=== PATIENT | male | born 1960 | race Caucasian/White ===

== ENCOUNTER 2017-10-07 10:08 | Inpatient (IN) | payer BC, SELFPAY ==
[2017-10-07] VITALS (27 sets, daily range): BP systolic 77–137; BP diastolic 59–124; PULSE 69–149; RESP 13–23; TEMP 36.4–37.1; O2SAT 93–99; BMI 26.9; BMI 25.7; BMI 25.8
--- NOTE | 2017-10-07 10:17 | EKG12_ITS ---
Test Reason : REPEAT Blood Pressure : / mmHG Vent. Rate : 074 BPM Atrial Rate : 296 BPM P-R Int : 000 ms QRS Dur : 126 ms QT Int : 346 ms P-R-T Axes : 265 066 -76 degrees QTc Int : 384 ms Atrial flutter Indeterminate axis T wave abnormality, consider anterior ischemia Abnormal ECG Confirmed by AIMEE LOPEZ, VARGAS ([id number]), assistant film editor WALESKA ESPITIA ([id number]) on 10/09/2017 10:15:48 AM Referred By: ANTONY Confirmed By:VARGAS YU MD
--- NOTE | 2017-10-07 10:17 | RAD_ITS ---
STUDY: X-RAY CHEST REASON FOR EXAM: Male, 57 years old. Irregular heartbeat TECHNIQUE: Single AP portable view of the chest. COMPARISON: None. FINDINGS: There is hyperinflation of the lungs consistent with chronic obstructive lung disease (COPD). Lungs are clear. There is no demonstrated pleural abnormality. There is borderline cardiomegaly. Normal mediastinum and pedro. Normal visualized pulmonary arteries. Normal visualized aortic arch and descending thoracic aorta. Normal visualized thoracic spine. Normal visualized ribs, clavicles, and shoulders. There is no demonstrated abnormality of the visualized soft tissue structures of the upper abdomen. RAD/Chest 1 View (Portable) IMPRESSION: Normal x-ray examination of the chest. Electronically Signed: Osman Corado DO at 11:05 EST Tel , Service support ,
--- NOTE | 2017-10-07 10:20 | NURSING ---
NO OLD EKGS
--- NOTE | 2017-10-07 10:21 | ED.DCSUM_ITS ---
- ER Visit Summary Date of Service: 10/07/17 Chief Complaint: Tachycardia History of Present Illness: The patient is a 57 M who went to his PCP visit 2 days ago for routine checkup and blood pressure medication refill. Patient reports he had no complaints. He was told at that time that his heart rate was in the 140s and he should go to the ER. Patient presents today for this complaint. He denies chest pain, palpitations, shortness of breath, or change in activity tolerance. Patient states his last stress test was 2 years ago and normal. Physical Examination: Blood pressure is 114/83, temperature 98.5, heart rate 149 , respiratory rate 16, pulse ox 98% on room air. Patient sitting upright in bed no acute distress. Heart is tachycardic and regular. Lung sounds are clear. Abdomen is soft nontender. Test Results: EKG reveals atrial flutter with a rate of 148. Q waves noted in lead III. Portal chest x-ray is unremarkable. CBC reveals hemoglobin concentrated at 17.0. White count is 12.3. Chemistry studies reveal BUN 20 and creatinine 1.31. Troponin is less than 0.02. TSH is normal. Emergency Department Course and Treatment: Patient was initially given 10 mg of IV Cardizem. This did not alter his heart rate or blood pressure at all. 20 mg IV bolus of Cardizem was given. Heart rate improved into the 80s but maintained an underlying atrial flutter rhythm. Blood pressure is 104/71. I spoke with Dr. Saldaña as well as Dr. Scott. Patient will be given a dose of Lovenox. Treatment Plan: [] Disposition: Admit Impression: New onset atrial flutter This note was generated with [employer] dictation software. It may contain incorrect words, spelling, and punctuation that were not noted in review of the chart prior to signing ED Disposition - Plan for ED Patient: Chief Complaint: Chest Other
[2017-10-07] MEDS: 0.9% Normal Saline 1,000 ML 150 ML IV (10:33)
[2017-10-07 10:34] LABS: Absolute Lymphocyte Count 2.83 X10^3/ul (0.83-4.51); Basophil# 0.09 X10^3/uL; Basophil% 0.7 % (0-1); Eosinophil# 0.23 X10^3/uL; Eosinophils% 1.9 % (0-5); Hematocrit 48.9 % (40-54); Lymphocyte # 2.83 X10^3/ul (4.0); Lymphocyte % 23.1 % (19-41); Mean Corp Hgb Conc 34.8 g/gl (32-36); Mean Corpuscular Hgb 29.5 pg (27.0-32.0); Mean Corpuscular Volume 84.7 fL (80-94); Mean Platelet Vol. 10.9 fl (6.2-12.0); Monocyte# 1.11 X10^3/uL; Neutrophil # 7.98 X10^3/uL (2.7-7.7); Neutrophil % 65.1 % (47-70); Platelet Count 213 K/mm3 (150-450); RBC Distribution Width CV 13.8 % (11.6-14.6); RBC Distribution Width SD 42.3 fl (35.1-43.9); Red Blood Count 5.77 M/mm3 (4.6-6.2); White Blood Count 12.3 K/mm3 (4.4-11.0)
[2017-10-07] MEDS: dilTIAZem 25 MG/5 ML Vial 10 MG IV BOLUS (10:34)
[2017-10-07 10:35] LABS: POSITIVE COUNT NO; POSITIVE DIFFERENTIAL NO; POSITIVE MORPHOLOGY NO
[2017-10-07 10:55] LABS: Anion Gap 9 (5-15); BUN 20 mg/dL (7-18); BUN/Creat Ratio 15.3 RATIO (10-20); Calcium,Total 9.1 mg/dL (8.5-10.1); Chloride 102 mmol/L (98-107); Creatinine, Serum 1.31 mg/dL (0.70-1.30); EST Glomerular Filtration Rate 60 mL/min (>60); Est Glom Filt Rate - Afr Amer 72 mL/min (>60); Estimated Creatinine Clearance 69.46 ml/min; Glucose 112 mg/dL (74-106); Potassium 3.7 mmol/L (3.5-5.1); Sodium Level 138 mmol/L (136-145); Thyroid Stim Hormone (TSH) 2.22 uIU/mL (0.358-3.74)
[2017-10-07] MEDS: dilTIAZem 25 MG/5 ML Vial 20 MG IV BOLUS (11:07)
--- NOTE | 2017-10-07 11:15 | EKG12_ITS ---
Test Reason : DYSRHYTHMIA Blood Pressure : / mmHG Vent. Rate : 148 BPM Atrial Rate : 296 BPM P-R Int : 000 ms QRS Dur : 094 ms QT Int : 360 ms P-R-T Axes : 243 033 -66 degrees QTc Int : 565 ms Atrial flutter Abnormal ECG Confirmed by AIMEE LOPEZ, VARGAS ([id number]), editor managing director WALESKA ESPITIA ([id number]) on 10/09/2017 10:16:56 AM Referred By: ANTONY Confirmed By:VARGAS YU MD
--- NOTE | 2017-10-07 11:40 | NURSING ---
DR JOE IN ER
[2017-10-07] MEDS: Enoxaparin 100 MG/ML Syringe 90 MG SC (11:42)
--- NOTE | 2017-10-07 12:29 | PCM.HP.STD ---
Problem List (1) Rapid heartbeat Status: Acute History of Present Illness Date of Admission: 10/07/17 Chief Complaint: Rapid heartbeat The patient is a 57 year old M who was seen in the emergency room at [facility] with chief complaint of rapid heartbeat. He had been seen in his PCPs office last Sunday and it was noted that his heartbeat was approximately 140, he was told at that time to go to the ER for evaluation but shows not to. Patient denies any shortness of breath or chest pain, he became concerned today because he had not follow directions and gone to the ER and Sunday and so he came in for evaluation. Telemetry showed the patient to be in atrial flutter with a rapid ventricular response of 130, he was given 10 mg IV Cardizem with slowing of his rate temporarily, his rate then went back up after a time frame and he was given another 20 of IV Cardizem. At the time of my examination, his heart rates approximately 70-80 the patient is asymptomatic. Labs were obtained, patient's troponin was unremarkable, chest x-ray was negative, labs were remarkable for white blood cell count of 12.3, BUN was elevated at 20, creatinine is elevated 1.3. On examination, patient's lungs were clear, heart rate and rhythm was irregular without murmurs, no carotid bruits were noted, patient was alert and in no distress. Abdomen was soft, bowel sounds are present in all 4 quadrants, no lower extremity edema was noted. At the time of this dictation, it was noted that the patient's heart rate had climbed back up into the 130 range, I requested the emergency room physician give Lopressor 5 mg IV. We will see if this slows his heart rate if not he may have to go on a Cardizem drip. Will be admitted to PCU, iliac enzymes will be cycled, echocardiogram was ordered, patient will be seen by cardiology, patient will be anticoagulated with Lovenox. Past Medical History Allergies No Known Allergies Allergy (Verified 10/07/17 10:12) Home Medications: Ambulatory Orders Medication Instructions Recorded Olmesartan/Hydrochlorothiazide 1 tab PO DAILY 10/07/17 [Benicar Hct 20-12.5 MG Tab] Surgical History: no surgical history Lives: Spouse/ Significant Other Smoking Status: Former smoker Tobacco Use: Non-smoker Alcohol: None Drugs: None - *Family History Maternal History Items: Diabetes, Hypertension Paternal History Items: - - pulmonary embolism Sibling History Items: Heart Disease - before age 55 Review of Systems Constitutional: Denies: Anorexia, Chills, Fever, Night Sweats, Malaise, Weakness, Weight Change, Fatigue Eyes: Denies: Blurred vision, Cataracts, Conjunctivae Inflammation, Double vision HEENT: Denies: Difficulty Hearing, Difficulty Swallowing, Dysphasia, Ear Pain, Eye Pain, Hard of Hearing, Head Aches, Hearing Changes, Nasal bleeding, Nasal Congestion, Post Nasal Drip Cardiovascular: Reports: Palpitations. Denies: Chest Pain, Claudication, Chest Pressure, Chest Tightness, Edema, Heaviness, Light Headedness, Orthopnea, Syncope Respiratory: Denies: Cough, Hemoptysis, Pleuritic Pain, Shortness of Breath, Shortness of breath at rest, Shortness of breath upon exertion, Sputum production, Wheezing Gastrointestinal: Denies: Abdominal Pain, Constipation, Diarrhea, Hematemesis, Hematochezia, Nausea, Melena, Vomiting Genitourinary: Denies: Dysuria, Frequency, Hematuria, Hesitancy, Urgency Musculoskeletal: Denies: Back Pain, Foot Pain, Hand Pain, Joint Pain, Joint stiffness, Joint swelling, Joint Tenderness, Leg Pain Skin: Denies: Dryness, Jaundice, Pruritis, Rash Neurological: Denies: Blurred vision, Double vision, Change in Speech, Slurred speech, Difficulty swallowing, Focal weakness, Headaches, Incoordination, Numbness, Tingling Psychiatric: Denies: Anxiety, Depression, Homicidal Ideations, Suicidal Ideations Endocrine: Denies: Change in Body Habitus, Heat/ Cold Intolerance, Polydipsia, Polyuria, Hx of Irradiation Hematologic/ Lymphatic: Denies: Adenopathy, Anemia, Easy Bruising, Easy Bleeding, Petechiae, Purpura VTE Information - Inpt Only VTE Present on Admission: No VTE Mechan Device Prophylaxis: None VTE Pharm Prophylaxis ordered?: No Reason prophylaxis not ordered:: Medical Contraindication - on full anticoagulation Patient Problems: Active and Suspected Problems Rapid heartbeat (Acute) - Physical Exam General: Alert, Oriented x3, Cooperative, No apparent distress, Well developed, Well nourished HEENT: Atraumatic, PERRLA, EOMI, Normocephalic Oral: Moist Mucosa Neck: Supple, No JVD, Negative Carotid Bruits, No Nuchal Rigidity, Trachea Midline, Thyroid Normal Size and Texture Lungs: Clear to auscultation, Normal air movement, No rhonchi, No wheeze, No rales Cardiovascular: No murmurs, PMI Normal, Irregular Rate, No rub noted Abdomen: Bowel Sounds Present, Soft, Non Tender, Non-Distended, No Hepato-splenomegaly, No hernias noted Extremities: No clubbing, No cyanosis, No edema, Capillary Refill Less than 3 Seconds Skin: No rashes, No breakdown Musculoskeletal: No Tenderness to Palpation of Joints or Extremities Neurological: Cranial nerves II-XII grossly intact, Neuro grossly intact, Motor Exam 5/5 strength throughout, Sensory exam intact to light touch and pain, Coordination normal Psych/Mental Status: Normal Affect, Appropriate, Alert and oriented to time, place, person, mood and affect Vital Signs Temp Pulse Resp BP Pulse Ox 98.5 F 81 13 108/97 H 98 10/07/17 11:35 10/07/17 11:35 10/07/17 11:35 10/07/17 11:35 10/07/17 11:35 Oxygen Delivery Method Room Air Weight: 92.4 kg Body Mass Index (BMI) 26.9 Laboratory Tests Past 24 Hrs 10/07/17 10/07/17 10:25 10:25 WBC 12.3 H RBC 5.77 Hgb 17.0 H Hct 48.9 MCV 84.7 MCH 29.5 MCHC 34.8 RDW 13.8 RDW Differential 42.3 Plt Count 213 MPV 10.9 Immature Gran % (Auto) 0.200 Neut % (Auto) 65.1 Lymph % (Auto) 23.1 [place] % (Auto) 9.0 Eos % (Auto) 1.9 Baso % (Auto) 0.7 Absolute Neuts (auto) 8.0 H Absolute Lymphs (auto) 2.83 Total Counted Not Reportable Sodium 138 Potassium 3.7 Chloride 102 Carbon Dioxide 27.0 Anion Gap 9 BUN 20 H Creatinine 1.31 H Estim Creat Clear Calc 69.46 Est GFR (MDRD) Af Amer 72 Est GFR (MDRD) Non-Af 60 BUN/Creatinine Ratio 15.3 Glucose 112 H Calcium 9.1 Troponin I < 0.02 TSH 2.22 Assessment/Plan Active and Suspected Problems Rapid heartbeat (Acute) #1 new onset atrial flutter with rapid ventricular response-patient will be admitted to PCU, cardiac enzymes will be cycled, patient will be seen by cardiology, rate limiting agents will be used, patient will be maintained on Lovenox 90 mg subcu every 12 hours, echocardiogram will be obtained #2 hypertension-I will reduce the patient's blood pressure medication to valsartan 160 mg daily #3 elevated creatinine-this could be as result of the patient being on a diuretic, again his diuretic will be dropped, labs will be rechecked tomorrow, I will give him IV fluid until tomorrow He had recent lab work drawn 2 days ago, I have requested it be faxed from [facility], patient had lipid profile done at that time and a BMP. Code Visit Inpatient E&M: 79443 Init Hosp L3
--- NOTE | 2017-10-07 12:40 | HP.PCM_ITS ---
Problem List (1) Rapid heartbeat Status: Acute History of Present Illness Date of Admission: 10/07/17 Chief Complaint: Rapid heartbeat The patient is a 57 year old M who was seen in the emergency room at [facility] with chief complaint of rapid heartbeat. He had been seen in his PCPs office last Sunday and it was noted that his heartbeat was approximately 140, he was told at that time to go to the ER for evaluation but shows not to. Patient denies any shortness of breath or chest pain, he became concerned today because he had not follow directions and gone to the ER and Sunday and so he came in for evaluation. Telemetry showed the patient to be in atrial flutter with a rapid ventricular response of 130, he was given 10 mg IV Cardizem with slowing of his rate temporarily, his rate then went back up after a time frame and he was given another 20 of IV Cardizem. At the time of my examination, his heart rates approximately 70-80 the patient is asymptomatic. Labs were obtained, patient's troponin was unremarkable, chest x-ray was negative, labs were remarkable for white blood cell count of 12.3, BUN was elevated at 20, creatinine is elevated 1.3. On examination, patient's lungs were clear, heart rate and rhythm was irregular without murmurs, no carotid bruits were noted, patient was alert and in no distress. Abdomen was soft, bowel sounds are present in all 4 quadrants, no lower extremity edema was noted. At the time of this dictation, it was noted that the patient's heart rate had climbed back up into the 130 range, I requested the emergency room physician give Lopressor 5 mg IV. We will see if this slows his heart rate if not he may have to go on a Cardizem drip. Will be admitted to PCU, iliac enzymes will be cycled, echocardiogram was ordered, patient will be seen by cardiology, patient will be anticoagulated with Lovenox. Past Medical History Allergies No Known Allergies Allergy (Verified 10/07/17 10:12) Home Medications: Ambulatory Orders Medication Instructions Recorded Olmesartan/Hydrochlorothiazide 1 tab PO DAILY 10/07/17 [Benicar Hct 20-12.5 MG Tab] Surgical History: no surgical history Lives: Spouse/ Significant Other Smoking Status: Former smoker Tobacco Use: Non-smoker Alcohol: None Drugs: None - *Family History Maternal History Items: Diabetes, Hypertension Paternal History Items: - - pulmonary embolism Sibling History Items: Heart Disease - before age 55 Review of Systems Constitutional: Denies: Anorexia, Chills, Fever, Night Sweats, Malaise, Weakness , Weight Change, Fatigue Eyes: Denies: Blurred vision, Cataracts, Conjunctivae Inflammation, Double vision HEENT: Denies: Difficulty Hearing, Difficulty Swallowing, Dysphasia, Ear Pain, Eye Pain, Hard of Hearing, Head Aches, Hearing Changes, Nasal bleeding, Nasal Congestion, Post Nasal Drip Cardiovascular: Reports: Palpitations. Denies: Chest Pain, Claudication, Chest Pressure, Chest Tightness, Edema, Heaviness, Light Headedness, Orthopnea, Syncope Respiratory: Denies: Cough, Hemoptysis, Pleuritic Pain, Shortness of Breath, Shortness of breath at rest, Shortness of breath upon exertion, Sputum production, Wheezing Gastrointestinal: Denies: Abdominal Pain, Constipation, Diarrhea, Hematemesis, Hematochezia, Nausea, Melena, Vomiting Genitourinary: Denies: Dysuria, Frequency, Hematuria, Hesitancy, Urgency Musculoskeletal: Denies: Back Pain, Foot Pain, Hand Pain, Joint Pain, Joint stiffness, Joint swelling, Joint Tenderness, Leg Pain Skin: Denies: Dryness, Jaundice, Pruritis, Rash Neurological: Denies: Blurred vision, Double vision, Change in Speech, Slurred speech, Difficulty swallowing, Focal weakness, Headaches, Incoordination, Numbness, Tingling Psychiatric: Denies: Anxiety, Depression, Homicidal Ideations, Suicidal Ideations Endocrine: Denies: Change in Body Habitus, Heat/ Cold Intolerance, Polydipsia, Polyuria, Hx of Irradiation Hematologic/ Lymphatic: Denies: Adenopathy, Anemia, Easy Bruising, Easy Bleeding , Petechiae, Purpura VTE Information - Inpt Only VTE Present on Admission: No VTE Mechan Device Prophylaxis: None VTE Pharm Prophylaxis ordered?: No Reason prophylaxis not ordered:: Medical Contraindication - on full anticoagulation Patient Problems: Active and Suspected Problems Rapid heartbeat (Acute) - Physical Exam General: Alert, Oriented x3, Cooperative, No apparent distress, Well developed, Well nourished HEENT: Atraumatic, PERRLA, EOMI, Normocephalic Oral: Moist Mucosa Neck: Supple, No JVD, Negative Carotid Bruits, No Nuchal Rigidity, Trachea Midline, Thyroid Normal Size and Texture Lungs: Clear to auscultation, Normal air movement, No rhonchi, No wheeze, No rales Cardiovascular: No murmurs, PMI Normal, Irregular Rate, No rub noted Abdomen: Bowel Sounds Present, Soft, Non Tender, Non-Distended, No Hepato- splenomegaly, No hernias noted Extremities: No clubbing, No cyanosis, No edema, Capillary Refill Less than 3 Seconds Skin: No rashes, No breakdown Musculoskeletal: No Tenderness to Palpation of Joints or Extremities Neurological: Cranial nerves II-XII grossly intact, Neuro grossly intact, Motor Exam 5/5 strength throughout, Sensory exam intact to light touch and pain, Coordination normal Psych/Mental Status: Normal Affect, Appropriate, Alert and oriented to time, place, person, mood and affect Vital Signs Temp Pulse Resp BP Pulse Ox 98.5 F 81 13 108/97 H 98 10/07/17 11:35 10/07/17 11:35 10/07/17 11:35 10/07/17 11:35 10/07/17 11:35 Oxygen Delivery Method Room Air Weight: 92.4 kg Body Mass Index (BMI) 26.9 Laboratory Tests Past 24 Hrs 10/07/17 10/07/17 10:25 10:25 WBC 12.3 H RBC 5.77 Hgb 17.0 H Hct 48.9 MCV 84.7 MCH 29.5 MCHC 34.8 RDW 13.8 RDW Differential 42.3 Plt Count 213 MPV 10.9 Immature Gran % (Auto) 0.200 Neut % (Auto) 65.1 Lymph % (Auto) 23.1 [place] % (Auto) 9.0 Eos % (Auto) 1.9 Baso % (Auto) 0.7 Absolute Neuts (auto) 8.0 H Absolute Lymphs (auto) 2.83 Total Counted Not Reportable Sodium 138 Potassium 3.7 Chloride 102 Carbon Dioxide 27.0 Anion Gap 9 BUN 20 H Creatinine 1.31 H Estim Creat Clear Calc 69.46 Est GFR (MDRD) Af Amer 72 Est GFR (MDRD) Non-Af 60 BUN/Creatinine Ratio 15.3 Glucose 112 H Calcium 9.1 Troponin I < 0.02 TSH 2.22 Assessment/Plan Active and Suspected Problems Rapid heartbeat (Acute) #1 new onset atrial flutter with rapid ventricular response-patient will be admitted to PCU, cardiac enzymes will be cycled, patient will be seen by cardiology, rate limiting agents will be used, patient will be maintained on Lovenox 90 mg subcu every 12 hours, echocardiogram will be obtained #2 hypertension-I will reduce the patient's blood pressure medication to valsartan 160 mg daily #3 elevated creatinine-this could be as result of the patient being on a diuretic, again his diuretic will be dropped, labs will be rechecked tomorrow, I will give him IV fluid until tomorrow He had recent lab work drawn 2 days ago, I have requested it be faxed from [facility], patient had lipid profile done at that time and a BMP. Code Visit Inpatient E&M: 04289 Init Hosp L3
[2017-10-07] MEDS: Metoprolol Tartrate 5 MG/5 ML Vial IV (12:41)
--- NOTE | 2017-10-07 13:23 | ECHOCS_ITS ---
Reason For Study: AFIB/FLUTTER Procedure This was a 2D Doppler, Color Flow transthoracic echocardiogram. The study was technically difficult. Due to body habitus and arrhythmia. Contrast injection was performed. Exam performed portable in patient room. Left Ventricle Normal LV size. Mild to moderate global left ventricular systolic dysfunction. The estimated ejection fraction is 40 %. There is mild to moderate global hypokinesis of the left ventricle. Right Ventricle Mildly dilated right ventricle. Mild global right ventricular systolic dysfunction. Atria Normal left atrium. Normal right atrium. Mitral Valve Normal mitral valve. Tricuspid Valve Normal tricuspid valve. Mild (1+) tricuspid valve insufficiency. Pulmonary artery systolic pressure is 30 mmHg. Aortic Valve The aortic valve is not well visualized. Pulmonic Valve The pulmonic valve is not well visualized. Great Vessels Normal aortic root. Pericardium/Pleural No pericardial effusion. Medication Diluted definity 4ml given slow IV push to enhance endocardial definition. MMode/2D Measurements & Calculations LVIDd: 4.4 cm IVSd: 0.96 cm Ao root diam: 2.7 cm LVIDs: 3.4 cm LVPWd: 1.1 cm LA dimension: 3.9 cm RVDd: 2.5 cm FS: 22.5 % LAV(MOD-bp): 48.9 ml LAV(MOD-bp) Indexed: 22.6 ml/m2 LA A4 area: 14.3 cm2 RA A4 area: 12.5 cm2 LAV(MOD-sp2): 48.9 ml LAV(MOD-sp4): 38.5 ml Doppler Measurements & Calculations MV E max darren: 51.0 cm/sec Ao V2 max: 75.6 cm/sec LV V1 max: 63.9 cm/sec Ao max P.3 mmHg LV V1 max P.6 mmHg PA V2 max: 54.3 cm/sec TR max darren: 249.3 cm/sec TR max P.9 mmHg Interpretation Summary Normal LV size. Mild to moderate global left ventricular systolic dysfunction. The estimated ejection fraction is 40 %. Pulmonary artery systolic pressure is 30 mmHg. Mild (1+) tricuspid valve insufficiency. Ordering Physician: Kishan Saldaña Referring Physician: Gagan Armendariz Performed By: Ramona Castaneda, ANANDA, RVT
[2017-10-07] MEDS: Carvedilol 12.5 MG Tablet PO ×2 (14:04→21:58)
[2017-10-07] MEDS: 0.9% Normal Saline 1,000 ML 125 ML IV ×2 (14:04→22:00)
--- NOTE | 2017-10-07 15:04 | CON.PCM_ITS ---
Reason for Consult Date of Consultation: 10/07/17 Reason for Consultation: Fast heart rate. History of Present Illness: The patient is a 57 year old M who was seen in the emergency room at [facility] [place] with chief complaint of rapid heartbeat. He had been seen in his PCPs office last Sunday and it was noted that his heartbeat was approximately 140, he was told at that time to go to the ER for evaluation but shows not to. Patient denies any shortness of breath or chest pain, he became concerned today because he had not follow directions and gone to the ER and Sunday and so he came in for evaluation. Telemetry showed the patient to be in atrial flutter with a rapid ventricular response of 130, he was given 10 mg IV Cardizem with slowing of his rate temporarily, his rate then went back up after a time frame and he was given another 20 of IV Cardizem. At the time of my examination, his heart rates approximately 70-80 the patient is asymptomatic. He was admitted to the telemetry unit. He denies any chest pain or paroxysmal nocturnal dyspnea or pedal edema. He has had no neck arm or jaw discomfort suggest angina no recent travel. During my examination his heart rate went back up to 144 bpm. [] Past Medical History Allergies/Adverse Reactions: Allergies No Known Allergies Allergy (Verified 10/07/17 10:12) Home Medications: Ambulatory Orders Medication Instructions Recorded Olmesartan/Hydrochlorothiazide 1 tab PO DAILY 10/07/17 [Benicar Hct 20-12.5 MG Tab] Surgical History: no surgical history - *Family History Maternal History Items: Diabetes, Hypertension Paternal History Items: - - pulmonary embolism Sibling History Items: Heart Disease - before age 55 Lives: Spouse/ Significant Other Smoking Status: Current every day smoker Tobacco Use: Non-smoker Alcohol: None Drugs: None Review of Systems - Review of Systems General: Denies: Fever, Night Sweats, Fatigue Cardiovascular: Denies: Chest Discomfort, Shortness of Breath, Orthopnea, PND, Peripheral Edema, Palpitations, Lightheadedness, Dizziness, Near Syncope, Syncope Respiratory: Denies: Cough, Sputum Production, Hemoptysis Gastrointestinal: Denies: Hematemesis, Hematochezia, Melena Genitourinary: Denies: Dysuria, Hematuria Skin: Denies: Rash Neurological: Denies: Dizziness Subjectve: Pleasant gentleman in no apparent distress Objective: Vital Signs Temp Pulse Resp BP Pulse Ox 98.5 F 144 H 14 102/70 98 10/07/17 13:47 10/07/17 14:43 10/07/17 13:47 10/07/17 13:47 10/07/17 13:47 Oxygen Delivery Method Room Air Weight: 195 lb 8.8 oz Body Mass Index (BMI) 25.7 General: Awake, Alert, Oriented x 3 HEENT: PERRL, EOMI, Sclera Non Icteric Neck: Supple, Good ROM, No Lymph Node Enlargement Lungs: Clear to auscultation Cardiovascular: Irregular Rhythm, Normal S1, Normal S2, No Murmurs, No Rubs, No Gallops Vascular: No Carotid Bruits, Normal Femoral Pulses, Normal Radial Pulses, Normal Dorsalis Pedal Pulse, Normal Posterior Tibial Pulses Abdomen: Bowel Sounds Present, Soft, Non Tender, No HSM, No Organomegaly Extremities: No Cyanosis, No Clubbing, No edema Neurological: No Focal Motor or Sensory Deficit Rhythm: EKG: Atrial flutter with a rapid ventricular response rate 144 bpm Assessment/Plan 1. Atrial flutter with rapid ventricular response rate Duration of the above rhythm is unclear at this particular time. He is minimally symptomatic with the above. My recommendation at this time would be to attempt to slow him down with intravenous Cardizem and anticoagulate him with Lovenox and subsequently with a factor Xa inhibitor. I would also recommend that he undergo a KRISTOPHER guided cardioversion after at least 24 hours of anticoagulation. Cardiac enzymes should be obtained to exclude coronary ischemia and an echocardiogram should be performed to assess his left ventricular function. I have discussed the above with the patient and his and they understand and agree to proceed. 2. Tobacco use Smoking cessation has been strongly encouraged. Thank you for allowing me to participate in the care of your patient. Please don't hesitate to call if any issues arise
[2017-10-07] MEDS: dilTIAZem 25 MG/5 ML Vial IV BOLUS (15:05)
--- NOTE | 2017-10-07 15:20 | NURSING ---
AFTER IV BOLUS CARDIZEM PATIENT HR IS BACK DOWN TO 70S INSTEAD OF 140S ASYMPTOMATIC
[2017-10-07] MEDS: Rivaroxaban 20 MG Tablet PO (19:14)
[2017-10-08] VITALS (22 sets, daily range): BP systolic 82–115; BP diastolic 60–95; PULSE 67–141; RESP 13–18; TEMP 36.3–36.8; O2SAT 93–100
[2017-10-08] MEDS: 0.9% Normal Saline 1,000 ML 125 ML IV ×3 (05:40→23:18)
[2017-10-08] MEDS: Rivaroxaban 20 MG Tablet PO (05:41)
[2017-10-08 06:10] LABS: Anion Gap 8 (5-15); BUN 21 mg/dL (7-18); BUN/Creat Ratio 18.6 RATIO (10-20); Chloride 108 mmol/L (98-107); Creatinine, Serum 1.13 mg/dL (0.70-1.30); EST Glomerular Filtration Rate 71 mL/min (>60); Est Glom Filt Rate - Afr Amer 86 mL/min (>60); Estimated Creatinine Clearance 80.53 ml/min; Glucose 97 mg/dL (74-106); Potassium 3.7 mmol/L (3.5-5.1); Sodium Level 140 mmol/L (136-145)
--- NOTE | 2017-10-08 07:15 | EKG12_ITS ---
Test Reason : Blood Pressure : / mmHG Vent. Rate : 139 BPM Atrial Rate : 278 BPM P-R Int : 000 ms QRS Dur : 090 ms QT Int : 318 ms P-R-T Axes : 000 035 -75 degrees QTc Int : 483 ms Atrial flutter Abnormal ECG Confirmed by AIMEE LOPEZ, VARGAS ([id number]), editor managing newspaper WALESKA ESPITIA ([id number]) on 10/10/2017 2:58:44 PM Referred By: Confirmed By:VARGAS YU MD
--- NOTE | 2017-10-08 07:15 | ECHOTEE_ITS ---
Reason For Study: Afib-Flutter Medication KRISTOPHER probe passed with minimal difficulty. No complications were noted. Cetacaine Topical [place] given X3 orally. Versed 1 mg given slow IVP. Fentanyl 50 mcg given slow IVP. Performed a rapid injection of agitated mix of 9 cc saline and 1cc air to assess for atrial septal defect. Left Ventricle Normal LV size. Mild to moderate global left ventricular systolic dysfunction. The estimated ejection fraction is 40 %. There is mild to moderate global hypokinesis of the left ventricle. Right Ventricle Mildly dilated right ventricle. Mild global right ventricular systolic dysfunction. Atria Bubble contrast study negative for right to left interatrial shunt. Intact atrial septum. Normal left atrium. Appendage thrombus of the left atrium. Normal right atrium. Mitral Valve Normal mitral valve. Tricuspid Valve Normal tricuspid valve. Mild tricuspid valve insufficiency. Aortic Valve Normal aortic valve. Trisinus/trileaflet aortic valve. Pulmonic Valve Normal pulmonic valve. Mild (1+) pulmonic valve insufficiency. Vessels Normal aortic root. Normal arch. The pulmonary artery is normal size. Pericardium No pericardial effusion. Interpretation Summary Normal LV size. Mild to moderate global left ventricular systolic dysfunction. The estimated ejection fraction is 40 %. Appendage thrombus of the left atrium. Ordering Physician: Oren Scott Referring Physician: Gagan Armendariz Performed By: Aleks Mcclellan RCS
[2017-10-08] MEDS: Carvedilol 12.5 MG Tablet PO ×2 (10:20→18:07)
--- NOTE | 2017-10-08 11:30 | CASEMGMT ---
Face to Face with patient for initial transition planning/care coordination assessment. RN ANA MARIA introduced self and role at [facility], pt voices understanding and consents to assessment at this time. Pt sitting up in bed in no distress at this time. Pt A/O x4 at this time and answers all questions appropriately at this time. Care providers, pharmacy, and demographics verified. See attached link. Pt voices no further concerns/needs at this time. Advised pt to ask for CM if any further questions/concerns/needs arise, voices understanding. CM to follow for any further discharge planning/needs including Xarelto script. PLAN: [place] [facility]
--- NOTE | 2017-10-08 14:16 | PN.CARD_ITS ---
Subjectve: Patient seen and evaluated still noted to be in atrial flutter. Though asymptomatic. Objective: Vital Signs Temp Pulse Resp BP Pulse Ox 98.3 F 141 H 16 106/78 95 10/08/17 13:50 10/08/17 13:50 10/08/17 13:50 10/08/17 13:50 10/08/17 13:50 Oxygen Delivery Method Room Air Weight: 195 lb 8.8 oz Body Mass Index (BMI) 25.7 Intake and Output for Last 24 Hours 10/06/17 10/07/17 10/08/17 23:59 23:59 23:59 Intake Total 2128 / 2128 1075 / 1075 Output Total 550 / 550 400 / 400 Balance 1578 / 1578 675 / 675 General: Awake, Alert, Oriented x 3 HEENT: PERRL, EOMI, Sclera Non Icteric Neck: Supple, Good ROM, No Lymph Node Enlargement Lungs: Clear to auscultation Cardiovascular: Irregular Rhythm, Normal S1, Normal S2, No Murmurs, No Rubs, No Gallops Vascular: No Carotid Bruits, Normal Femoral Pulses, Normal Radial Pulses, Normal Dorsalis Pedal Pulse, Normal Posterior Tibial Pulses Abdomen: Bowel Sounds Present, Soft, Non Tender, No HSM, No Organomegaly Extremities: No Cyanosis, No Clubbing, No edema Neurological: No Focal Motor or Sensory Deficit 10/07/17 14:36: Troponin I < 0.02 10/07/17 18:19: Troponin I < 0.02 10/08/17 00:43: Troponin I < 0.02 10/08/17 05:15: Sodium 140, Potassium 3.7, Chloride 108 H, Carbon Dioxide 24.0, Anion Gap 8, BUN 21 H, Creatinine 1.13, Est GFR (MDRD) Af Amer 86, Est GFR (MDRD ) Non-Af 71, BUN/Creatinine Ratio 18.6, Glucose 97, Calcium 8.0 L Rhythm: EKG: Atrial flutter with a 2-1 block. ECHO: Global reduction in the ventricular ejection fraction estimated to be 40%. Assessment/Plan 1. Atrial flutter with rapid ventricular response rate Duration of the above rhythm is unclear at this particular time. He is minimally symptomatic with the above. Was started on a factor Xa inhibitor and he underwent a KRISTOPHER this morning as well as a transthoracic echo. It demonstrated global reduction in left ventricular ejection fraction estimated at 40%. More importantly there was a left atrial appendage thrombus noted and therefore cardioversion was deferred. Plan will therefore be to continue anticoagulation Rate control with Cardizem and then switch over to beta-iain in a.m. We will need anticoagulation for 3-4 weeks and a repeat KRISTOPHER then performed 2. Tobacco use Smoking cessation has been strongly encouraged. Thank you for allowing me to participate in the care of your patient. Please don't hesitate to call if any issues arise
[2017-10-08] MEDS: dilTIAZem 25 MG/5 ML Vial 20 MG IV BOLUS (15:06)
--- NOTE | 2017-10-08 17:34 | PCM.PN.HOSP ---
Patient Problems: Active and Suspected Problems Rapid heartbeat (Acute) Subjective: Patient was seen and examined earlier on. Going for KRISTOPHER. Denies chest pain, dizziness, palpitations. Objective: Physical Exam General: Alert, Oriented x3, Cooperative, No apparent distress, not pale, not jaundiced HEENT: Atraumatic, PERRLA, EOMI, Normocephalic Oral: Moist Mucosa Neck: Supple, No JVD Lungs: Clear to auscultation, Normal air movement, No rhonchi, No wheeze, No rales Cardiovascular: No murmurs, Irregular Rate Abdomen: Bowel Sounds Present, Soft, Non Tender, Non-Distended, No Hepato-splenomegaly Extremities: No edema Skin: No rashes, No breakdown Musculoskeletal: No Tenderness to Palpation of Joints or Extremities Neurological: Cranial nerves II-XII grossly intact, Neuro grossly intact Psych/Mental Status: Normal Affect, Appropriate, Alert and oriented to time, place, person, mood and affect Vitals/I&O's: Vital Signs Temp Pulse Resp BP Pulse Ox 98.1 F 71 16 107/83 H 98 10/08/17 15:20 10/08/17 15:27 10/08/17 15:20 10/08/17 15:20 10/08/17 15:20 Oxygen Delivery Method Room Air Weight: 88.7 kg Body Mass Index (BMI) 25.7 Intake and Output for Last 24 Hours 10/06/17 10/07/17 10/08/17 23:59 23:59 23:59 Intake Total 2128 / 2128 1565 / 1565 Output Total 550 / 550 850 / 850 Balance 1578 / 1578 715 / 715 Laboratory Results 10/07/17 18:19: Troponin I < 0.02 10/08/17 00:43: Troponin I < 0.02 10/08/17 05:15: Sodium 140, Potassium 3.7, Chloride 108 H, Carbon Dioxide 24.0, Anion Gap 8, BUN 21 H, Creatinine 1.13, Estim Creat Clear Calc 80.53, Est GFR (MDRD) Af Amer 86, Est GFR (MDRD) Non-Af 71, BUN/Creatinine Ratio 18.6, Glucose 97, Calcium 8.0 L Current Medications Acetaminophen (Tylenol) 650 mg PO Q6H PRN PRN PRN Reason: Mild Pain (1-3)/Temp > 100.7 F Carvedilol (Coreg) 12.5 mg PO BID [facility] Last Admin: 10/08/17 10:20 Dose: 12.5 mg Sodium Chloride () 1,000 mls @ 125 mls/hr IV .Q8H [facility] Last Admin: 10/08/17 15:06 Dose: 125 mls/hr Diltiazem HCl 125 mg/ Dextrose 125 mls @ 10 mls/hr CONT INF .[id number] [facility] PRN Reason: 10 MG/HR Last Admin: 10/07/17 15:09 Dose: 10 mls/hr Sodium Chloride () 1,000 mls @ 15 mls/hr IV .Q48H [facility] PRN Reason: KVO Last Admin: 10/08/17 08:53 Dose: Not Given Magnesium Hydroxide (Milk Of Magnesia) 30 ml PO DAILY PRN PRN Reason: Constipation Ondansetron HCl (Zofran) 4 mg IV Q8H PRN PRN PRN Reason: NAUSEA Rivaroxaban (Xarelto) 20 mg PO DAILY@0600 [facility] Last Admin: 10/08/17 05:41 Dose: 20 mg Sodium Chloride () 5 - 30 ml IV UD PRN PRN Reason: SALINE FLUSH Assessment/Plan Active and Suspected Problems Rapid heartbeat (Acute) 57y/o male who was admitted with palpitations and found to have Atrial flutter with RVR. 1. New onset atrial flutter with rapid ventricular response, controlled now, on carvedilol and Cardizem, started on Xarelto, will be going for KRISTOPHER for cardioversion, will continue to monitor 2. Hypertension-controlled, on valsartan held on account of relative hypotension, will continue to monitor 3. Elevated creatinine secondary to dehydration, improved with stopping diuretic, Cr is 1.13 today, will continue to monitor. 4. DVT PPx - On xarelto Code Visit Inpatient E&M: 90977 Subs Hosp L2
--- NOTE | 2017-10-08 17:44 | PN_ITS ---
Patient Problems: Active and Suspected Problems Rapid heartbeat (Acute) Subjective: Patient was seen and examined earlier on. Going for KRISTOPHER. Denies chest pain, dizziness, palpitations. Objective: Physical Exam General: Alert, Oriented x3, Cooperative, No apparent distress, not pale, not jaundiced HEENT: Atraumatic, PERRLA, EOMI, Normocephalic Oral: Moist Mucosa Neck: Supple, No JVD Lungs: Clear to auscultation, Normal air movement, No rhonchi, No wheeze, No rales Cardiovascular: No murmurs, Irregular Rate Abdomen: Bowel Sounds Present, Soft, Non Tender, Non-Distended, No Hepato- splenomegaly Extremities: No edema Skin: No rashes, No breakdown Musculoskeletal: No Tenderness to Palpation of Joints or Extremities Neurological: Cranial nerves II-XII grossly intact, Neuro grossly intact Psych/Mental Status: Normal Affect, Appropriate, Alert and oriented to time, place, person, mood and affect Vitals/I&O's: Vital Signs Temp Pulse Resp BP Pulse Ox 98.1 F 71 16 107/83 H 98 10/08/17 15:20 10/08/17 15:27 10/08/17 15:20 10/08/17 15:20 10/08/17 15:20 Oxygen Delivery Method Room Air Weight: 88.7 kg Body Mass Index (BMI) 25.7 Intake and Output for Last 24 Hours 10/06/17 10/07/17 10/08/17 23:59 23:59 23:59 Intake Total 2128 / 2128 1565 / 1565 Output Total 550 / 550 850 / 850 Balance 1578 / 1578 715 / 715 Laboratory Results 10/07/17 18:19: Troponin I < 0.02 10/08/17 00:43: Troponin I < 0.02 10/08/17 05:15: Sodium 140, Potassium 3.7, Chloride 108 H, Carbon Dioxide 24.0, Anion Gap 8, BUN 21 H, Creatinine 1.13, Estim Creat Clear Calc 80.53, Est GFR ( MDRD) Af Amer 86, Est GFR (MDRD) Non-Af 71, BUN/Creatinine Ratio 18.6, Glucose 97, Calcium 8.0 L Current Medications Acetaminophen (Tylenol) 650 mg PO Q6H PRN PRN PRN Reason: Mild Pain (1-3)/Temp > 100.7 F Carvedilol (Coreg) 12.5 mg PO BID [facility] Last Admin: 10/08/17 10:20 Dose: 12.5 mg Sodium Chloride () 1,000 mls @ 125 mls/hr IV .Q8H [facility] Last Admin: 10/08/17 15:06 Dose: 125 mls/hr Diltiazem HCl 125 mg/ Dextrose 125 mls @ 10 mls/hr CONT INF .[id number] [facility] PRN Reason: 10 MG/HR Last Admin: 10/07/17 15:09 Dose: 10 mls/hr Sodium Chloride () 1,000 mls @ 15 mls/hr IV .Q48H [facility] PRN Reason: KVO Last Admin: 10/08/17 08:53 Dose: Not Given Magnesium Hydroxide (Milk Of Magnesia) 30 ml PO DAILY PRN PRN Reason: Constipation Ondansetron HCl (Zofran) 4 mg IV Q8H PRN PRN PRN Reason: NAUSEA Rivaroxaban (Xarelto) 20 mg PO DAILY@0600 [facility] Last Admin: 10/08/17 05:41 Dose: 20 mg Sodium Chloride () 5 - 30 ml IV UD PRN PRN Reason: SALINE FLUSH Assessment/Plan Active and Suspected Problems Rapid heartbeat (Acute) 57y/o male who was admitted with palpitations and found to have Atrial flutter with RVR. 1. New onset atrial flutter with rapid ventricular response, controlled now, on carvedilol and Cardizem, started on Xarelto, will be going for KRISTOPHER for cardioversion, will continue to monitor 2. Hypertension-controlled, on valsartan held on account of relative hypotension , will continue to monitor 3. Elevated creatinine secondary to dehydration, improved with stopping diuretic , Cr is 1.13 today, will continue to monitor. 4. DVT PPx - On xarelto Code Visit Inpatient E&M: 22722 Subs Hosp L2
[2017-10-09] VITALS (7 sets, daily range): BP systolic 98–110; BP diastolic 66–88; PULSE 80–139; RESP 16; TEMP 36.4–36.6; O2SAT 96–98
[2017-10-09] MEDS: Rivaroxaban 20 MG Tablet PO (05:32)
[2017-10-09] MEDS: 0.9% Normal Saline 1,000 ML 125 ML IV (05:33)
[2017-10-09 05:45] LABS: Anion Gap 5 (5-15); BUN 19 mg/dL (7-18); BUN/Creat Ratio 16.4 RATIO (10-20); Calcium,Total 7.9 mg/dL (8.5-10.1); Chloride 110 mmol/L (98-107); Creatinine, Serum 1.16 mg/dL (0.70-1.30); EST Glomerular Filtration Rate 69 mL/min (>60); Est Glom Filt Rate - Afr Amer 83 mL/min (>60); Estimated Creatinine Clearance 78.45 ml/min; Glucose 93 mg/dL (74-106); Potassium 4.2 mmol/L (3.5-5.1); Sodium Level 141 mmol/L (136-145)
--- NOTE | 2017-10-09 07:38 | PN.CARD_ITS ---
Subjectve: Was seen and evaluated and appears to be stable. Objective: Vital Signs Temp Pulse Resp BP Pulse Ox 97.6 F L 80 16 98/66 96 10/09/17 05:20 10/09/17 05:20 10/09/17 05:20 10/09/17 05:20 10/09/17 05:20 Oxygen Delivery Method Room Air Weight: 195 lb 8.8 oz Body Mass Index (BMI) 25.7 Intake and Output for Last 24 Hours 10/07/17 10/08/17 10/09/17 23:59 23:59 23:59 Intake Total 2128 / 2128 2564 / 2564 769 / 769 Output Total 550 / 550 850 / 850 Balance 1578 / 1578 1714 / 1714 769 / 769 General: Awake, Alert, Oriented x 3 HEENT: PERRL, EOMI, Sclera Non Icteric Neck: Supple, Good ROM, No Lymph Node Enlargement Lungs: Clear to auscultation Cardiovascular: Irregular Rhythm, Normal S1, Normal S2, No Murmurs, No Rubs, No Gallops Vascular: No Carotid Bruits, Normal Femoral Pulses, Normal Radial Pulses, Normal Dorsalis Pedal Pulse, Normal Posterior Tibial Pulses Abdomen: Bowel Sounds Present, Soft, Non Tender, No HSM, No Organomegaly Extremities: No Cyanosis, No Clubbing, No edema Neurological: No Focal Motor or Sensory Deficit 10/09/17 05:15: Sodium 141, Potassium 4.2, Chloride 110 H, Carbon Dioxide 26.0, Anion Gap 5, BUN 19 H, Creatinine 1.16, Est GFR (MDRD) Af Amer 83, Est GFR (MDRD ) Non-Af 69, BUN/Creatinine Ratio 16.4, Glucose 93, Calcium 7.9 L Rhythm: A flutter with a controlled ventricular response rate Assessment/Plan 1. Atrial flutter with rapid ventricular response rate Duration of the above rhythm is unclear at this particular time. He is minimally symptomatic with the above. Was started on a factor Xa inhibitor and he underwent a KRISTOPHER yesterday as well as a transthoracic echo. It demonstrated global reduction in left ventricular ejection fraction estimated at 40%. More importantly there was a left atrial appendage thrombus noted and therefore cardioversion was deferred. Plan will therefore be to continue anticoagulation Rate control with beta-iain in a.m. We will need anticoagulation for 3-4 weeks and a repeat KRISTOPHER then performed Appears to be tolerating the beta-iain at this time and therefore my recommendation would be to discharge him on these 2 medications and I will follow him up in the office. 2. Tobacco use Smoking cessation has been strongly encouraged. Thank you for allowing me to participate in the care of your patient. Please don't hesitate to call if any issues arise
[2017-10-09] MEDS: Carvedilol 12.5 MG Tablet PO (08:01)
--- NOTE | 2017-10-09 11:53 | PCM.DC ---
- Discharge Diagnoses Current Active Problems: Current Active and Chronic Problems Rapid heartbeat (Acute) Reason(s) for Visit for Discharge Instructions: Rapid heart beat You will use the following diet at home:: Cardiac Your food should be the consistency of: Regular Your liquids should be the consistency of: Regular/Thin Discharge Activity: Return to Normal Activity Additional Instructions: You are being discharged on blood thinners. Watch out for black stools, bllod in your stools or urine or bleeding gums Allergies/Adverse Reactions: Allergies No Known Allergies Allergy (Verified 10/07/17 10:12) Medications to take at Discharge Carvedilol [Coreg (Beta Manuel)] 12.5 mg PO BID #60 tab 10/09/17 Rivaroxaban [Xarelto] 20 mg PO DAILY@0600 #60 tab 10/09/17 The following prescriptions were given: Rivaroxaban [Xarelto] 20 mg PO DAILY@0600 #60 tab Carvedilol [Coreg (Beta Manuel)] 12.5 mg PO BID #60 tab Orders to be completed after discharge: Basic Metabolic Profile (BMP) Time Frame: 1 Week, Location: Laboratory Primary Care Physician: Gagan Armendariz [Primary Care Provider] - Please follow up with your Primary Care Physician in: within 2 weeks Please Follow Up With: Oren Scott MD When: in 2 weeks, KRISTOPHER cardioversion in 3-4 weeks Proposed Discharge Date: 10/09/17
--- NOTE | 2017-10-09 11:57 | DS.PCM_ITS ---
Discharge Date and Diagnosis Date of Admission: 10/07/17 Date of Discharge: 10/09/17 - Primary Discharge Diagnosis Active and Suspected Problems Atrial flutter with RVR Left atrial appendage thrombus - Secondary Discharge Diagnosis Hypertension Hospital Course and Treatment Imaging Results: Clinical Impression(s) from Imaging Studies Chest X-Ray 10/07/17 10:17 IMPRESSION: Normal x-ray examination of the chest. Electronically Signed: Osman Corado DO at 11:05 EST Tel , Service support , Cardiology Operations: None Procedures: 2-D Echocardiogram Summary of Care Provided: 57y/o male who was admitted with palpitations and found to have Atrial flutter with RVR. 1. New onset atrial flutter with rapid ventricular response, controlled now, on carvedilol, started on Xarelto, KRISTOPHER showed left atrial appendage thrombus, patient will need to continue anticoagulation for 3-4 weeks, then come back for repeat KRISTOPHER and cardioversion. 2. Left atrial appendage thrombus, on xarelto, to be re-assessed in the outpatient 3. Cardiomyopathy, unclear etiology, seen on KRISTOPHER, EF 40%, not in acute CHF, will be followed by cardiology. 4. Hypertension-controlled, started on carvedilol 5. Elevated creatinine secondary to dehydration, improved with stopping diuretic , will need to be re-assessed. Discharge Diet: Low fat/ Low Cholesterol, 2000 mg Sodium Diet Discharge Activity: Return to Normal Activity Call your doctor if you observe: Fever of 101 or Higher Home Medications: Medications to take at Discharge Carvedilol [Coreg (Beta Manuel)] 12.5 mg PO BID #60 tab 10/09/17 Rivaroxaban [Xarelto] 20 mg PO DAILY@0600 #60 tab 10/09/17 Following Prescrptions Were Given to Patient: Rivaroxaban [Xarelto] 20 mg PO DAILY@0600 #60 tab Carvedilol [Coreg (Beta Manuel)] 12.5 mg PO BID #60 tab Primary Care Physician: Gagan Armendariz [Primary Care Provider] - Please follow up with your Primary Care Physician in: within 2 weeks Please Follow Up With: Oren Scott MD When: in 2 weeks, KRISTOPHER cardioversion in 3-4 weeks Disposition: Home Minutes spent on discharge:: 25 Patient Condition:: Stable Meaningful Use Info Meaningful Use Diagnoses (Choose all that apply): None applicable Code Visit Inpatient E&M: 90251 Disch Hosp
--- NOTE | 2017-10-09 14:29 | CASEMGMT ---
Per Dr. Baker, pt to be sent home on [place]. Script e-scribed to [employer] at this time. Call placed to [facility] and per tech, pt's monthly co-pay is $30. Pt given $10 co-pay card at this time and updated on all, voices understanding. Deanna HEAD CM
== END 2017-10-09 13:14 | disposition home or self-care (01) | DRG 310 ==
LOC: ED 12:12 → PCU 12:35
PROVIDERS: Admitting Provider Internal Medicine; Emergency Provider Emergency Medicine; Family Provider Physician Assistant; PCP Physician Assistant; Visit Provider Internal Medicine
DX: I48.92 Unspecified atrial flutter (principal); I42.9 Cardiomyopathy, unspecified; I51.3 Intracardiac thrombosis, not elsewhere classified; E86.0 Dehydration; I10 Essential (primary) hypertension; Z72.0 Tobacco use
CPT/HCPCS: 36415; 71045; 80048; 84443; 84484; 85025; 93005; 93306; 93312; 93320; 93325; 99284; 99406; J7030; Q9957; A4216; C8929; J2310

== ENCOUNTER → 2017-11-13 10:12 | Outpatient (CLI) | payer BC, SELFPAY ==
[2017-11-12 09:17] VITALS: BMI 28.7
--- NOTE | 2017-11-13 10:26 | ECHOTEE_ITS ---
Reason For Study: A. fib, Assess LA appendage thrombus Medication KRISTOPHER probe passed without difficulty. No complications were noted. Cetacaine Topical [place] given X3 orally. Versed 2 mg given slow IVP. Fentanyl 50 mcg given slow IVP. Left Ventricle Normal LV size. Left ventricular systolic function is lower limits of normal. The estimated ejection fraction is 50 %. No regional wall motion abnormalities noted. Right Ventricle Normal RV size. Normal systolic function. Atria Hypermobile atrial septum. The left atrium is moderately enlarged. Mural thrombus of the left atrium. Normal right atrium. Mitral Valve Normal mitral valve. Tricuspid Valve Normal tricuspid valve. Aortic Valve Normal aortic valve. Trisinus/trileaflet aortic valve. Pulmonic Valve Normal pulmonic valve. Vessels Normal aortic root. The pulmonary artery is normal size. Pericardium No pericardial effusion. Interpretation Summary Normal LV size. Left ventricular systolic function is lower limits of normal. The estimated ejection fraction is 50 %. The left atrium is moderately enlarged. Mural thrombus of the left atrium. Ordering Physician: Oren Scott Referring Physician: Oren Scott Performed By: Lianne Chatman, ANANDA
[2017-11-13 10:28] LABS: Hematocrit 44.5 % (40-54); Hemoglobin 14.4 g/dl (13.0-16.5); Mean Corp Hgb Conc 32.4 g/gl (32-36); Mean Corpuscular Hgb 27.6 pg (27.0-32.0); Mean Corpuscular Volume 85.4 fL (80-94); Mean Platelet Vol. 11.5 fl (6.2-12.0); Platelet Count 114 K/mm3 (150-450); RBC Distribution Width CV 13.7 % (11.6-14.6); RBC Distribution Width SD 42.9 fl (35.1-43.9); Red Blood Count 5.21 M/mm3 (4.6-6.2); White Blood Count 4.3 K/mm3 (4.4-11.0)
[2017-11-13 10:30] LABS: Scan Indicated on CBC? Y/N NO
[2017-11-13 10:42] LABS: Anion Gap 6 (5-15); BUN 16 mg/dL (7-18); BUN/Creat Ratio 12.3 RATIO (10-20); Calcium,Total 8.3 mg/dL (8.5-10.1); Chloride 104 mmol/L (98-107); EST Glomerular Filtration Rate 60 mL/min (>60); Est Glom Filt Rate - Afr Amer 73 mL/min (>60); Estimated Creatinine Clearance 65.97 ml/min; Glucose 111 mg/dL (74-106); Potassium 4.8 mmol/L (3.5-5.1); Sodium Level 137 mmol/L (136-145)
--- NOTE | 2017-11-13 10:43 | EKG12_ITS ---
Test Reason : AFIB Blood Pressure : / mmHG Vent. Rate : 090 BPM Atrial Rate : 090 BPM P-R Int : 000 ms QRS Dur : 094 ms QT Int : 360 ms P-R-T Axes : 000 038 -05 degrees QTc Int : 440 ms Poor data quality, interpretation may be adversely affected Atrial flutter 2:1 Otherwise normal ECG No previous ECGs available Confirmed by ARTEM LOPEZ, MERLY ([id number]), tape editor WALESKA ESPITIA ([id number]) on 11/16/2017 2:12:41 PM Referred By: Merly Scott Confirmed By:MERLY SCOTT MD
== END ==
PROVIDERS: Family Provider Physician Assistant; PCP Physician Assistant; Visit Provider Internal Medicine Cardiovascular Disease
DX: I48.3 Typical atrial flutter (principal)
CPT/HCPCS: 36415; 80048; 85027; 93005; 93312; 93320; 93325; J7040; J2310

== ENCOUNTER → 2018-04-29 09:50 | Outpatient (CLI) | payer BC, SELFPAY ==
[2018-04-02 11:35] LABS: International Normalized Ratio 2.1; Prothrombin Time (Protime)PT. 23.9 SECONDS (11.7-14.9)
[2018-04-02 12:04] LABS: Anion Gap 9 (5-15); BUN 19 mg/dL (7-18); BUN/Creat Ratio 15.2 RATIO (10-20); Calcium,Total 8.7 mg/dL (8.5-10.1); Chloride 107 mmol/L (98-107); Creatinine, Serum 1.25 mg/dL (0.70-1.30); EST Glomerular Filtration Rate 63 mL/min (>60); Est Glom Filt Rate - Afr Amer 76 mL/min (>60); Glucose 95 mg/dL (74-106); Potassium 4.3 mmol/L (3.5-5.1); Sodium Level 142 mmol/L (136-145)
--- NOTE | 2018-04-29 10:10 | PCM.HP.BLA ---
History and Physical Date of Admission: 04/29/18 HPI HPI Details: RIN DANIELLE, is a 58 M who presents to the office today for a cardiovascular outpatient follow-up. He has a history of atrial flutter with RVR in October 2017. He underwent a KRISTOPHER which showed a left atrial mural thrombus. He underwent then a repeat KRISTOPHER in November 2017 that again showed a mural thrombus in the left atrium, thus he has not undergone cardioversion. He also has a history of dilated cardiomyopathy that is potentially tachycardia induced and tobacco abuse. Pt. denies chest, arm, jaw, or neck discomfort. His exercise tolerance is stable. Pt. denies symptoms of lightheadedness, dizziness, near syncope, or syncopal episodes. Pt. denies edema or claudication issues. Pt. denies orthopnea, PND, fever, chills, blood in urine, blood in stool, myalgia, or unexplainable fatigue. He continues with palpitations on the right side of his chest. He denies any new shortness of breath. Intake Vital Signs 04/29/18 Height 5 ft 11 in 04/29/18 Weight: 201 lb 04/29/18 Body Mass Index (BMI) 28.0 04/29/18 Blood Pressure 124/84 04/29/18 Blood Pressure Location Rt brachial 04/29/18 Blood Pressure Position Semi-Fowlers 04/29/18 Respiratory Rate 16 04/29/18 Pulse Rate 54 04/29/18 Pulse Source Monitor 04/29/18 Pulse Ox 98 04/29/18 Oxygen Delivery Method room air Intake Visit Reasons: Amb Documentation Allergies No Known Allergies Allergy (Verified 03/18/18 15:49) Medications carvedilol 25 mg tablet 25 mg PO BID #180 tab 11/07/17 [Rx Confirmed 04/26/18] Rivaroxaban [Xarelto] 20 mg PO DAILY 11/12/17 [History Confirmed 04/26/18] diltiazem CD 120 mg capsule,extended release 24 hr 120 mg PO QDAY cap 12/19/17 [History Confirmed 04/26/18] PFSH Medical History Nicotine dependence (Chronic) Thrombus of left atrial appendage (Acute) Atrial flutter (Acute) Hypertension (Chronic) Family History Mother Diabetes Hypertension Father Pulmonary emboli Brother CAD (coronary artery disease) <55 Social History Smoking Status: Current every day smoker tobacco type: cigarettes alcohol intake: never substance use type: does not use caffeine: Yes Type: tea Number of servings: 2 what type of physical activity do you participate in: walking frequency: daily duration: 45-60 minutes/day seatbelt use: always do you feel safe at home: Yes ROS Const Const: Negative for fatigue, weakness, body ache, fever(s) or chills ENT ENT: Negative for dizziness Cardio Chest Pain: No Palpitations: Yes Edema: None Muscle aches with walking: None Resp Respiratory: Positive for SOB with activity (no worsened); negative for SOB at rest, SOB orthopnea\SOB lying down or paroxysmal nocturnal dyspnea GI GI: Negative nausea, black,tarry stools, bright, red blood in stools or vomiting blood/hematemesis : Negative for hematuria or frequent nighttime urination/ nocturia Musc Musc: Negative for muscle aches/ myalgia Neuro Neuro: Negative for weakness or dizziness Endo Endo: Negative for fatigue Cardiology Exam Const Appearance: cooperative, healthy appearing, comfortable and no acute distress Orientation: alert, awake and oriented x3 Head Head: normal to inspection Mouth: oral mucosae normal Neck Neck: no JVD and normal visual inspection Carotids: normal carotid upstroke Chest Chest inspection: normal inspection of the chest and normal respiratory effort Auscultation: Bilateral: Clear to Auscultation Cardio Rate: bradycardic Rhythm: irregularly irregular Heart sounds: S1 normal and S2 normal; negative rub, gallop or murmur GI GI: normal to inspection Neuro General: alert, awake, oriented x3 and CN's II-XI intact bilaterally Skin Skin: no rashes or lesions noted Extremities Pulses: Normal: Right Posterior Tibial Pulse, Left Posterior Tibial Pulse, Right Radial Pulse, Left Radial Pulse Lower Extremity Edema: None: Bilateral Psych Psychological: normal affect Supplemental Info KRISTOPHER from November 2017 showed an estimated ejection fraction of 50%, moderately enlarged left atrium, and mural thrombus in left atrium. Echocardiogram 18 showed normal LV size, mild to moderate global left ventricular systolic dysfunction, estimated ejection fraction of 40%, RVSP 30 mmHg, and mild tricuspid valve insufficiency. Assessment & Plan 1. Typical atrial flutter I48.3 Plan - SHEA Benton KRISTOPHER from November 2017 showed an estimated ejection fraction of 50% and moderately enlarged left atrium. Patient will continue with rate limiting medications and factor Xa inhibitor. He will proceed with KRISTOPHER cardioversion. If the cardioversion is successful his medications may need to be adjusted accordingly heart rate and blood pressure. 2. Thrombus of left atrial appendage I51.3 Plan - SHEA Benton He has continue with factor Xa inhibitor. His previous TEEs have showed left atrial appendage thrombus. Because of this, he will undergo a KRISTOPHER prior to cardioversion. 3. Essential hypertension I10 Plan - SHEA Benton We will continue to monitor this. Depending on his overall course, his medications will have to be adjusted accordingly. We will not make any medication regimen changes. Plan Detail Additional Comments - SHEA Benton Discussed the above patient with Dr. Scott, he agrees with the plan of care. Thank you for allowing us to participate in the patients plan of care, if you have any questions please do not hesitate to call. This note was generated using a voice recognition system and there may be incorrect words, spelling or punctuation that were not noted when reviewing the office note prior to saving. Coding Diagnoses Typical atrial flutter I48.3 Atrial flutter type: typical Thrombus of left atrial appendage I51.3 Essential hypertension I10 Hypertension type: essential hypertension Coding Diagnoses Typical atrial flutter I48.3 Atrial flutter type: typical Thrombus of left atrial appendage I51.3 Essential hypertension I10 Hypertension type: essential hypertension
--- NOTE | 2018-04-29 12:19 | PCM.OP.BLANK ---
Operative Report Date of Procedure: 04/29/18 DC cardioversion. 58-year-old man with a history of persistent atrial flutter. The patient underwent a transesophageal echocardiogram this morning to exclude left atrial appendage thrombus. Patient has been on anticoagulation. The KRISTOPHER did not demonstrate any evidence of left atrial appendage thrombus. He was therefore brought to the cardiac catheterization noninvasive lab. Patient was seen by Dr. Whitfield of the critical care division. Informed consent was obtained. Anterior posterior pads were applied. The patient was then administered 6 mg of intravenous etomidate and 200 J of synchronized DC biphasic cardioversion energy were applied with prompt reversal to sinus rhythm. Patient tolerated the procedure well. Electrocardiographic confirmation was obtained. Conclusion: Successful DC cardioversion to sinus rhythm. Discontinue diltiazem. Continue Coreg.
--- NOTE | 2018-04-29 12:57 | OP.PCM_ITS ---
Problem List (1) Atrial flutter Status: Acute Qualifiers: Atrial flutter type: typical Qualified Code(s): I48.3 - Typical atrial flutter (2) Hypertension Status: Chronic Qualifiers: Hypertension type: essential hypertension Qualified Code(s): I10 - Essential (primary) hypertension (3) Nicotine dependence Status: Chronic Qualifiers: Nicotine product type: cigarettes Substance use status: uncomplicated Qualified Code(s): F17.210 - Nicotine dependence, cigarettes, uncomplicated Operative Report Date of Procedure: 04/29/18 - Conscious sedation CONSCIOUS SEDATION REPORT BRIEF HISTORY OF PRESENT ILLNESS: The patient is a 58-year-old male who presented to [facility] for an elective outpatient cardioversion due to underlying atrial fibrillation. The patient reports no PO intake since midnight. The patient does not have a history of obstructive sleep apnea. The patient reports a history of smoking, but denies COPD. The patient denies any recent constitutional symptoms such as fevers, chills, nausea or vomiting. Patient does report some nausea following anesthesia for colonoscopy in the past. Patient did receive a KRISTOPHER just prior to cardioversion. Patient received 1 mg of Versed and 50 mcg of fentanyl for this procedure. Patient's ejection fraction was 40%. PHYSICAL EXAMINATION: VITAL SIGNS: Reviewed and were acceptable. GENERAL: The patient is an obese male, in no apparent distress, speaking in full sentences. HEENT: Normocephalic, atraumatic. Mucous membranes are moist and pink. Poor teeth. Slight retrognathia. Good mouth opening noted. Trachea is midline. Good neck mobility. MP II CHEST: S1, S2 irregularly irregular. No murmurs, rubs or gallops were noted. LUNGS: Clear to auscultation bilaterally without appreciable wheezes, rales or rhonchi. ABDOMEN: Soft, nontender, nondistended. Positive bowel sounds. EXTREMITIES: There is no clubbing, cyanosis or edema. ASA Class: II DESCRIPTION OF PROCEDURE: After confirmation of informed consent, the patient's anesthesia plan was reviewed in detail. Etomidate was chosen. Risks and benefits were reviewed and the patient agreed to proceed. At 11:45 AM, the patient was given 4 mg of etomidate. The patient required a total of 6 mg of etomidate throughout the procedure to achieve appropriate sedation. The patient achieved an appropriate level of sedation and received 1 attempt s synchronized cardioversion, at [address] Scott at the bedside. This was successful in achieving normal sinus rhythm. The patient was monitored until 11:50 AM, at which time the patient reached their baseline mental status and function. The patient tolerated the procedure well. COMPLICATIONS: None ESTIMATED BLOOD LOSS: None RECOMMENDATIONS: Okay to recover in usual fashion. Code Visit 9xxxx: Other Procedure See Report - [id number]
== END ==
PROVIDERS: Family Provider Physician Assistant; PCP Physician Assistant; Visit Provider Nurse Practitioner Family
DX: I48.3 Typical atrial flutter (principal); I51.3 Intracardiac thrombosis, not elsewhere classified; I10 Essential (primary) hypertension; I42.0 Dilated cardiomyopathy; F17.210 Nicotine dependence, cigarettes, uncomplicated; Z79.02 Long term (current) use of antithrombotics/antiplatelets; Z79.899 Other long term (current) drug therapy
CPT/HCPCS: 36415; 80048; 85610; 92960; 93005; 93312; 93320; 93325; J7040; A4216

== ENCOUNTER → 2018-05-17 06:19 | Outpatient (CLI) | payer BC, SELFPAY ==
--- NOTE | 2018-05-17 18:44 | STRESSREP ---
Stress Test Report Exercise myocardial perfusion stress test. 58-year-old man with a history of atrial flutter. Stress protocol: Resting EKG demonstrates normal sinus rhythm with a rate of 49 bpm occasional premature ventricular complexes noted. T-wave inversions are noted laterally. The patient exercised according to regular Jj protocol for a total duration of 9 minutes and 45 seconds the patient completed 45 seconds of stage IV of the Jj protocol the maximum heart rate attained was 139 bpm which was 86% of maximum predicted heart rate the maximum workload was 11.3 metabolic equivalents. The patient maintained sinus rhythm throughout the recording. At rest there were no ST or T-wave changes noted suggest ischemia peak exercise upsloping ST changes only were noted with no meet the criteria for ischemia. No atrial fibrillation was noted occasional premature ventricular complexes present. Resting blood pressure was 158/92 with a peak blood pressure 182/90 mmHg. There were no ST or T-wave changes noted suggest ischemia. Myocardial perfusion protocol. 14.5 mCi of technetium 99m sestamibi was injected at rest. The patient exercised according to regular Jj protocol for 9 minutes and 45 seconds attaining 11.3 metabolic equivalents at peak exercise 44.2 mCi of technetium 99m sestamibi was injected stress images were obtained stress and rest images were reconstructed and compared in the short axis vertical long horizontal long axis. Gated images were also obtained Perfusion SPECT analysis: Review of the stress images demonstrate normal uptake of tracer noted in all areas of myocardium. The resting images similarly demonstrate normal uptake of tracer noted in all areas of the myocardium. Gated SPECT analysis: The gated ejection fraction is 59%. Conclusion: Exercise myocardial perfusion stress test with no evidence of ischemia noted at a high workload. Preserved ejection fraction. Excellent functional capacity. No atrial fibrillation noted.
== END ==
PROVIDERS: Visit Provider Physician Assistant Medical
DX: R07.9 Chest pain, unspecified (principal); R94.31 Abnormal electrocardiogram [ECG] [EKG]; I10 Essential (primary) hypertension; I48.92 Unspecified atrial flutter
CPT/HCPCS: 78452; 93017; A9500; A4216

== ENCOUNTER → 2018-11-20 16:14 | Outpatient (CLI) | payer BC, SELFPAY ==
[2018-11-20 15:33] VITALS: BMI 28.3
--- NOTE | 2018-11-20 16:20 | RAD_ITS ---
HISTORY: cough EXAM: XR Chest 2 Views: COMPARISON: 10/07/17 CXR FINDINGS: LINES/DEVICES: None. LUNGS: Mild emphysema, biapical scarring and chronic interstitial changes. No pneumothorax. No consolidation or effusion. MEDIASTINUM AND CARDIOVASCULAR STRUCTURES: Cardiac silhouette not enlarged. Central airways and mediastinal contour are unremarkable. BONES AND SOFT TISSUES: Unremarkable. RAD/Chest PA and Lateral IMPRESSION: Chronic interestitial changes and mild emphysema. No radiographic evidence of acute cardiopulmonary disease. at 0456 Reported and signed by: Don Zuniga MD Electronically Signed: Don Zuniga, at 4:55 EDT Tel , Service support ,
== END ==
PROVIDERS: Referring Provider Physician Assistant Medical; Visit Provider Physician Assistant Medical
DX: R05 Cough (principal)
CPT/HCPCS: 71046

== ENCOUNTER → 2019-04-29 | Outpatient (CLI) | payer BC, SELFPAY ==
[2019-04-15 14:57] VITALS: BMI 28.3
--- NOTE | 2019-04-29 11:30 | MRI_ITS ---
STUDY: MRI BRAIN WITH AND WITHOUT CONTRAST REASON FOR EXAM: Male, 59 years old. Sudden right hearing loss and vertigo. TECHNIQUE: Standardized multiplanar fat and water weighted pulse sequences were obtained. 19 IV Dotarem was administered for the contrast portion of the examination. Thin sections through the internal auditory canals were also performed with and without contrast. COMPARISON: None. FINDINGS: No restricted diffusion to suspect acute or subacute ischemic infarct. Normal size of the ventricles and extra-axial spaces for the patient's age. Few nonspecific subcortical white matter T2 FLAIR hyperintensity in the right frontal lobe and left anterior periventricular white matter. They may be secondary to microvascular disease. No midline shift and no mass effects. Normal bilateral basal ganglia. Normal thalami. There is no extra-axial fluid accumulation. Normal flow voids within the major intracranial circulation suggesting patency by spin echo criteria. Normal venous enhancement. There is no enhancing intra-axial or extra-axial abnormality. Normal sella turcica, pituitary gland, infundibular stalk, optic chiasm and hypothalamus. Normal tectal plate and pineal gland. Normal midbrain, milagro and medulla. Normal cerebellum. Normal basal cisterns. Moderate amount of mucosal edema of the right temporal mastoid bone. Normal left temporal mastoid bone. Normal bilateral internal auditory canals. No abnormal contrast enhancement of the 7 and 8th nerve bundles. No abnormal contrast enhancement of the membranous labyrinths. No demonstrated orbital abnormality, within the constraints of a routine brain study. Moderate amount of mucosal thickening in the maxillary sinuses and left ethmoid sinus. Normal calvarium and skull base. Normal visualized soft tissue structures. Normal visualized upper cervical spine. MRI/Brain W/WO Contrast IMPRESSION: 1. No MRI evidence of acute or subacute ischemic infarct or acute intracranial abnormality. 2. Normal MRI scan of both internal auditory canals (7th and 8th nerve bundles and both members labyrinths). 3. Moderate amount of mucosal edema of the right temporal mastoid bone due to noncoalescent type of mastoiditis. 4. A few nonspecific subcortical white matter T2 FLAIR hyperintensity foci in the right frontal lobe and left anterior periventricular white matter. They may be secondary to microvascular disease. 5. Bilateral chronic maxillary sinusitis and chronic left ethmoid sinusitis. Electronically Signed: Mark Carter MD at 15:56 EDT , Service support ,
[2019-04-29 11:50] LABS: CREATININE FINGERSTICK 0.8 mg/dL (0.70-1.30); EGFR FINGERSTICK > 60.0000 mL/min (>60)
== END | disposition home or self-care (01) ==
PROVIDERS: Family Provider Family Medicine; PCP Family Medicine; Referring Provider Otolaryngology; Visit Provider Otolaryngology
DX: H91.21 Sudden idiopathic hearing loss, right ear (principal)
CPT/HCPCS: 70553; A9575

== ENCOUNTER 2019-05-28 17:30 | Outpatient (RCR) | payer BC, SELFPAY ==
[2019-04-15 14:57] VITALS: BMI 28.3
--- NOTE | 2019-05-20 16:15 | HP.PTEVAL_ITS ---
Patient's Visit Information RIN DANIELLE is a 59 year old M referred to Physical Therapy by Bradley Barrios MD with a diagnosis of R BPPV. Date of Evaluation: 05/20/19 Physical Therapist: REYNALDO Delcid - Visit Plan Frequency: 1x/Week Duration: 3 Weeks Plan: Pt to follow up in a week to recheck Eply. He will call in and cancel if he feels good and will give Questionaire over the phone - Subjective Findings: Pt lost his hearing in his R ear about 1-2 months ago. He was on vacation for 2 weeks and went back to work and started with ringing in his ears and lasted about 1//5 hours and then he could not hear anymore. He saw Dr Barrios and he said that everything look intact and took steriods which he did not handle well and they did an MRI with normal brain. The only thing that the Dr can do is tell me wahts not wrong with him. IF he rolls to the R side, the room spins until he moves and sits back up and he does not lay there and spin. Dr Barrios said he had a hallpile that was posisitve to the Right. He is not spinning currently. He has no balance issues. - Objective + R Hallpike for delayed upward torsional nystagmus that laste 30 seconds... went right into the Right Eply. Repeated R hallpike and was + for delayed response slower and less durantion less than 20 seconds upward torsional nystagmus.... Wnt right into R EPLY and when sitting up pt felt a mota and wa nted to fall BW on the table and therapist was there to give support. Repeated R Eply again and was negative for nystagmus and dizziness - Goals Goal 1:: Abolish dizziness when roll to the R side Goal Time Frame: 2-4 Weeks Goal 2:: I HEP if needed Goal Time Frame: 2-4 Weeks - Rehabilitation Potential Rehabilitation Potential: Good - Anticipated Interventions Thank you for the opportunity to evaluate your patient. For Medicare and Medicare HMO plans, please review the plan of care and approve it. It will need to be FAXED BACK to us at [phone] for Medicare purposes. For Medicare only, by signing this I certify the plan of care. Please let me know if there are questions or concerns regarding this plan of care. Physician Signature: Date:
--- NOTE | 2019-08-04 13:48 | HP.PT.NRP ---
HP - Discharge Summary (1) - Patient Information RIN DANIELLE was seen in my office for initial evaluation on 05/20/19. The following Plan of Care was established for this patient: Initial Frequency: 1x/Week Initial Duration: 3 Weeks This patient was last seen in our office 06/27/19. Pertinent comments regarding their Physical therapy will appear below: DC PT. Pt was to call in if he neede further PT and has not done so. DC PT At this point I will be discontinuing this patient from physical therapy. I would be happy to see this patient again in the future if found appropriate by the physician. Thank you! Joslyn Wang, MPT
== END 2019-05-28 19:00 | disposition home or self-care (01) ==
LOC: PT 17:30
PROVIDERS: Family Provider Family Medicine; PCP Family Medicine; Referring Provider Otolaryngology; Visit Provider Otolaryngology
DX: H81.11 Benign paroxysmal vertigo, right ear (principal)
CPT/HCPCS: 97161; 97530

== ENCOUNTER → 2019-08-19 15:07 | Outpatient (CLI) | payer BC, SELFPAY ==
[2019-08-19 14:12] VITALS: BMI 28.3
[2019-08-19 17:40] LABS: AST(SGOT) 31 U/L (15-37); Alanine Aminotransfer ALT/SGPT 32 U/L (16-61); Albumin, Serum 3.9 g/dL (3.2-5.0); Alkaline Phosphatase 81 U/L (45-117); Anion Gap 5 (5-15); BUN 17 mg/dL (7-18); Calcium,Total 8.5 mg/dL (8.5-10.1); Chloride 105 mmol/L (98-107); Cholesterol 143 mg/dL (200); Creatinine, Serum 1.13 mg/dL (0.70-1.30); EST Glomerular Filtration Rate 70 mL/min (>60); Est Glom Filt Rate - Afr Amer 85 mL/min (>60); Globulin 3.8 g/dL (2.2-4.2); Glucose 82 mg/dL (74-106); High Density Lipoprotein 32 mg/dL; Potassium 3.9 mmol/L (3.5-5.1); Protein, Total 7.7 g/dL (6.4-8.2); Sodium Level 138 mmol/L (136-145); Triglycerides 111 mg/dL; Very Low Density Lipoprotein 22 mg/dL (5-40)
== END ==
PROVIDERS: Family Provider Family Medicine; PCP Family Medicine; Referring Provider Family Medicine; Visit Provider Family Medicine
DX: I10 Essential (primary) hypertension (principal); R35.0 Frequency of micturition; Z12.5 Encounter for screening for malignant neoplasm of prostate
CPT/HCPCS: 36415; 80053; 80061; 84153; G0103

== ENCOUNTER 2020-07-01 05:39 | Day surgery (SDC) | payer BC, SELFPAY ==
[2020-06-10 14:26] VITALS: BMI 28.3
[2020-07-01] VITALS (7 sets, daily range): BP systolic 117–157; BP diastolic 85–107; PULSE 55–67; RESP 16–18; TEMP 35.8–35.9; O2SAT 92–98; BMI 25.9
[2020-07-01] MEDS: Lactated Ringers 1,000 ML 100 ML IV (06:24)
--- NOTE | 2020-07-01 07:21 | OP.COLON_ITS ---
Patient Name: Peter Weinstein Procedure Date: 07/01/2020 6:35 AM Date of : 1960 Age: 60 Procedure: Colonoscopy Indications: High risk colon cancer surveillance: Personal history of colonic polyps Providers: Mumtaz Garcia MD Referring MD: Jesus Echavarria Medicines: See the Anesthesia note for documentation of the administered medications Patient Profile: This is a 60 year old male. Refer to note in patient chart for documentation of history and physical. Last Colonoscopy: 2013. Complications: No immediate complications. Procedure: Pre-Anesthesia Assessment: - Prior to the procedure, a History and Physical was performed, and patient medications and allergies were reviewed. The patient's tolerance of previous anesthesia was also reviewed. The risks and benefits of the procedure and the sedation options and risks were discussed with the patient. All questions were answered, and informed consent was obtained. Prior Anticoagulants: The patient has taken Xarelto (rivaroxaban), last dose was 5 days prior to procedure. ASA Grade Assessment: III - A patient with severe systemic disease. After reviewing the risks and benefits, the patient was deemed in satisfactory condition to undergo the procedure. After I obtained informed consent, the scope was passed under direct vision. Throughout the procedure, the patient's blood pressure, pulse, and oxygen saturations were monitored continuously. The colonoscope was introduced through the anus and advanced to 5 cm into the ileum. The colonoscopy was performed without difficulty. The patient tolerated the procedure well. The quality of the bowel preparation was good. Scope In: 7:07:11 AM Scope Withdrawal Time 0 hours 6 minutes 34 seconds Scope Out: 7:17:30 AM Total Procedure Duration Time 0 hours 10 minutes 19 seconds Findings: The terminal ileum appeared normal. Non-bleeding internal hemorrhoids were found during retroflexion. The hemorrhoids were mild and small. No biopsies or other specimens were collected for this exam. The exam was otherwise without abnormality. Impression: - The examined portion of the ileum was normal. - Non-bleeding internal hemorrhoids. No specimens collected. - The examination was otherwise normal. Recommendation: - Discharge patient to home. - Resume previous diet. - Continue present medications. - Repeat colonoscopy in 10 years for screening purposes. - Return to primary care physician (date not yet determined). Procedure Code(s): --- Professional --- 84480, Colonoscopy, flexible; diagnostic, including collection of specimen(s) by brushing or washing, when performed (separate procedure) Diagnosis Code(s): --- Professional --- Z86.010, Personal history of colonic polyps K64.8, Other hemorrhoids CPT copyright 2017 [employer]. All rights reserved. The codes documented in this report are preliminary and upon timber feller review may be revised to meet current compliance requirements. MD Mumtaz Moreland MD 07/01/2020 7:21:20 AM This report has been signed electronically. Number of Addenda: 0 Note Initiated On: 07/01/2020 6:35 AM
--- NOTE | 2020-07-01 07:22 | OP.CCLET_ITS ---
07/01/2020 Jesus Echavarria Re : Colonoscopy procedure for Peter Weinstein Dear Dr. Echvaarria This procedure was performed on June. My impressions and recommendations are as follows: Impressions : - The examined portion of the ileum was normal. - Non-bleeding internal hemorrhoids. No specimens collected. - The examination was otherwise normal. Recommendations : - Discharge patient to home. - Resume previous diet. - Continue present medications. - Repeat colonoscopy in 10 years for screening purposes. - Return to primary care physician (date not yet determined). My findings are described in the full procedure note, which is enclosed. If I can be of further assistance, please feel free to contact me at Doctor phone number(s): , Fax: [phone], Work: . Sincerely, MD Mumtaz Moreland MD 07/01/2020 7:21:20 AM This report has been signed electronically.
--- NOTE | 2020-07-01 08:38 | HP_ITS ---
Intake Vital Signs 06/10/20 Height 6 ft 1 in 06/10/20 Weight: 202 lb 5 oz 06/10/20 BMI 26.6 06/10/20 BP 159/79 H 06/10/20 Blood Pressure Location Rt brachial 06/10/20 Position Sitting 06/10/20 Respiration 20 H 06/10/20 Pulse 55 L 06/10/20 Pulse Source NIBP 06/10/20 Temp 97.9 F 06/10/20 Temp Source Temporal 06/10/20 Pulse Oximetry (%) 99 06/10/20 Oxygen Delivery Method room air Intake Visit Reasons: C-Scope Chief Complaint: c-scope/ hx polyps Manager Card Required: No Is patient in pain?: No Allergies No Known Allergies Allergy (Verified 06/10/20 14:26) Medications carvedilol 12.5 mg tablet 12.5 mg PO BID #180 tab 08/19/19 [Rx Confirmed 05/12/20] rivaroxaban 20 mg tablet 20 mg PO DAILY #90 tab 08/19/19 [Rx Confirmed 05/12/20] omeprazole 20 mg capsule,delayed release 20 mg PO DAILY #90 cap 05/12/20 [Rx Confirmed 05/12/20] [facility] Medical History Paroxysmal atrial flutter (Chronic) Non-ischemic cardiomyopathy (Chronic) Thrombus of left atrial appendage (Resolved) Essential (primary) hypertension (Chronic) Nicotine dependence (Chronic) 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 Mumtaz Garcia MD) Smoking Status: Current every day smoker alcohol intake: never substance use type: does not use caffeine: Yes Type: tea Number of servings: 2 what type of physical activity do you participate in: walking frequency: daily duration: 45-60 minutes/day seatbelt use: always do you feel safe at home: Yes HPI HPI Surgical H&P: Yes HPI: RIN DANIELLE, is a 60 M who presents to the office today for Evaluation of endoscopy. Patient had in July 2014 colonoscopy where he was noted to have polyps located at the hepatic flexure and sigmoid colon area. He presents today for reevaluation of colonoscopy. The pathology report at the time of his last colonoscopy came back with serrated sessile polyps. Patient is on Xarelto for A. fib. He does have nausea and vomiting with propofol. ROS General General: Yes weight change; no appetite, fatigue, colon cancer, breast cancer or weakness HEENT HEENT: Yes eye surgery; no difficulty swallowing, eye injury, swollen glands or hoarseness Endo Endocrine: No thyroid disease, diabetes mellitus, thyroid cancer, Hair loss, heat intolerance or cold intolerance Musc Musculoskeletal: Yes gout; no back problems, arthritis, rheumatoid arthritis or joint pain Cardio Cardiovascular: Yes atrial fibrillation and high blood pressure; no murmur, pacemaker, heart disease, heart attack, heart stent, palpitations, shortness of breat with exertion or chest pain Psych Psychiatric: No depression, anxiety or hearing voices Resp Respiratory: No shortness of breath, No sleep apnea, No cough, No COPD, No asthma, No emphysema, No wheezing Gastro Gastrointestinal: No abdominal pain, No nausea or vomiting, No diarrhea, No constipation, No blood in stool, Yes acid reflux, Yes hemorrhoids, No ulcers, No gallbladder problem, No black,tarry stools Krishna Hematologic: Yes blood thinners, No blood disorders, No bleeding, No anemia, No blood clots Neuro Neurologic: No weakness Exam Const General: no acute distress, well developed, well hydrated Orientation: oriented to person, oriented to place, oriented to time [facility] Head: normocephalic, atraumatic Ears: external ears normal Mouth: moist mucous membranes Eyes Sclera: sclerae normal Pupils: normal by confrontation Neck Neck: no lymphadenopathy noted Neck mass: No Thyroid: thyroid normal, symmetrical Chest Chest palpation & inspection: normal inspection of the chest Resp Effort & Inspection: normal respiratory effort Auscultation: clear to auscultation bilaterally Percussion: percussion normal Cardio Rate: regular rate Rhythm: regular rhythm Heart Sounds: no murmurs GI Palpation: soft, no hepatosplenomegaly, no masses, nontender Rectal Exam: other Other: Rectal exam deferred. Extrem General: normal to inspection, no clubbing, cyanosis or edema Assessment & Plan Problems 1. Personal history of colonic polyps Z86.010 Plan I have discussed the above with the patient. I have offered the patient colonoscopy for evaluation. I have explained the risks/benefits of the procedure and described the procedure. I have discussed the risks with the patient, including but not limited to: infection, bleeding, perforation of the GI tract requiring emergency surgery, inability to complete the procedure, injury to any internal organs, complications of anesthesia, etc. - the patient understands and agrees to proceed. I have answered all the patient's questions to the patient's satisfaction and the patient has no further questions. The patient has been given instructions for the colon cleansing preparation. Coding Level of Care Code Off vis,new,level 3 Diagnoses Personal history of colonic polyps Z86.010 COVID (Procedure Consent) Procedure Criteria Procedure Criteria: Yes Elective The surgeon/proceduralist and patient have discussed in detail the risk of exposure to and/or potential harm posed by the COVID-19 virus with having a surgery/procedure at this time versus the risk of? delaying the surgery/procedure. It is not possible to know either the risk of delaying the surgery or procedure or chance of getting an infection with perfect accuracy, but a joint decision was made between the patient and the surgeon/proceduralist ?to proceed at this time with the scheduled surgery/procedure as indicated on the consent form. I have re-examined the patient. There are no clinical changes since date of exam.
== END 2020-07-01 08:27 | disposition home or self-care (01) ==
LOC: EN 05:40 → AC 05:40
PROVIDERS: Anesthesiology; PCP Family Medicine; Referring Provider Family Medicine; Visit Provider Surgery
PROC: 0DJD8ZZ Inspection of Lower Intestinal Tract, Via Natural or Artificial Opening Endoscopic (ICD-10-PCS; CPT 45378; principal; 2020-07-01 06:55)
DX: Z12.11 Encounter for screening for malignant neoplasm of colon (principal); K64.8 Other hemorrhoids; K21.9 Gastro-esophageal reflux disease without esophagitis; I10 Essential (primary) hypertension; F17.200 Nicotine dependence, unspecified, uncomplicated; I48.0 Paroxysmal atrial fibrillation; Z86.010 Personal history of colon polyps; Z79.02 Long term (current) use of antithrombotics/antiplatelets; Z20.828 Contact with and (suspected) exposure to other viral communicable diseases; Z79.899 Other long term (current) drug therapy
CPT/HCPCS: 45378; 87635; C9803; J7120; J1610; J2405; U0003

== ENCOUNTER → 2020-10-27 15:13 | Outpatient (CLI) | payer BC, SELFPAY ==
[2020-10-27 14:52] VITALS: BMI 28.0
[2020-10-27 17:07] LABS: Anion Gap 6 (5-15); BUN 20 mg/dL (7-18); Calcium,Total 8.7 mg/dL (8.5-10.1); Chloride 108 mmol/L (98-107); Cholesterol 194 mg/dL (200); Creatinine, Serum 1.11 mg/dL (0.70-1.30); EST Glomerular Filtration Rate 71 mL/min (>60); Est Glom Filt Rate - Afr Amer 87 mL/min (>60); Glucose 87 mg/dL (74-106); High Density Lipoprotein 33 mg/dL; Potassium 4.3 mmol/L (3.5-5.1); Sodium Level 143 mmol/L (136-145); Triglycerides 258 mg/dL; Very Low Density Lipoprotein 52 mg/dL (5-40)
== END ==
PROVIDERS: PCP Family Medicine; Referring Provider Family Medicine; Visit Provider Family Medicine
DX: I10 Essential (primary) hypertension (principal)
CPT/HCPCS: 36415; 80048; 80061

== ENCOUNTER → 2021-01-19 14:57 | Outpatient (CLI) | payer BC, SELFPAY ==
[2021-01-19 13:46] VITALS: BMI 27.2
--- NOTE | 2021-01-19 15:05 | RAD_ITS ---
EXAM: XR CHEST, 2 VIEWS : 1960 CLINICAL INDICATION: pre-operative TECHNIQUE: Frontal and lateral views of the chest. This report was created using [employer] report generation technology. COMPARISON: 11/20/2018 FINDINGS: LUNGS AND PLEURAL SPACES: Unremarkable. No consolidation or edema. No pneumothorax. No effusion. HEART: Unremarkable. Cardiac silhouette not enlarged. MEDIASTINUM: Central airways and mediastinal contour are unremarkable. BONES/JOINTS: Unremarkable. SOFT TISSUES: Unremarkable. RAD/Chest PA and Lateral IMPRESSION: No radiographic evidence of acute cardiopulmonary disease. at 1612 Reported and signed by: Luis Fernando Santizo MD Electronically Signed: Luis Fernando Santizo MD at 16:11 EDT Tel , Service support ,
[2021-01-19 16:06] LABS: Anion Gap 4 (5-15); BUN 23 mg/dL (7-18); Calcium,Total 8.7 mg/dL (8.5-10.1); Chloride 106 mmol/L (98-107); Creatinine, Serum 1.35 mg/dL (0.70-1.30); EST Glomerular Filtration Rate 57 mL/min (>60); Est Glom Filt Rate - Afr Amer 69 mL/min (>60); Glucose 87 mg/dL (74-106); Potassium 4.5 mmol/L (3.5-5.1); Sodium Level 141 mmol/L (136-145)
== END ==
PROVIDERS: PCP Family Medicine; Referring Provider Nurse Practitioner Family; Visit Provider Nurse Practitioner Family
DX: I48.92 Unspecified atrial flutter (principal)
CPT/HCPCS: 36415; 71046; 80048

== ENCOUNTER 2021-01-25 10:14 | Day surgery (SDC) | payer BC, SELFPAY ==
[2021-01-19 13:46] VITALS: BMI 27.2
[2021-01-24 10:36] VITALS: BMI 27.2
--- NOTE | 2021-01-25 12:30 | PCM.OP.BLANK ---
Problems Associated Problem List Diagnoses (1) Paroxysmal atrial flutter: Operative Report Date of Procedure: 01/25/21 Direct-current cardioversion. 60-year-old man with a history of persistent atrial flutter. Patient has been anticoagulated for a minimum of 3 weeks. Patient was brought to the cardiac catheterization lab in the postabsorptive nonsedated state. Informed consent was obtained. The patient was seen by Dr. Whitfield of the critical care division. Anterior-posterior pads were applied. 4 mg of intravenous etomidate was administered and then 200 J of synchronized DC cardioversion energy were applied with prompt reversal to sinus rhythm. Patient tolerated the procedure well. Conclusion: Successful DC cardioversion from atrial flutter to sinus rhythm. Continue current medical therapy and anticoagulation. Follow-up as per office protocol.
--- NOTE | 2021-01-25 13:35 | PCM.OP.PRO ---
Assessment & Plan Assessment/Plan (1) Paroxysmal atrial flutter: (2) Non-ischemic cardiomyopathy: (3) Essential (primary) hypertension: (4) Nicotine dependence: QUALIFIERS: Nicotine product type: cigarettes Substance use status: uncomplicated Qualified Code(s): F17.210 - Nicotine dependence, cigarettes, uncomplicated Procedure Report Date of Procedure: 01/25/21 CONSCIOUS SEDATION REPORT BRIEF HISTORY OF PRESENT ILLNESS: The patient is a 60-year-old male who presented to [facility] for an elective outpatient cardioversion due to underlying atrial fibrillation. The patient reports no PO intake since midnight. The patient does not have a history of obstructive sleep apnea. The patient reports a history of smoking and COPD. The patient denies any recent constitutional symptoms such as fevers, chills, nausea or vomiting. The patient denies previous anesthetic complications. Patient's last known ejection fraction was 40%. Patient does have a history of previous cardioversion in 2018 and tolerated this well. PHYSICAL EXAMINATION: VITAL SIGNS: Reviewed and were acceptable. GENERAL: The patient is a male, in no apparent distress, speaking in full sentences. HEENT: Normocephalic, atraumatic. Mucous membranes are moist and pink. Good mouth opening noted. Trachea is midline. Good neck mobility. MP II CHEST: S1, S2 irregularly irregular. No murmurs, rubs or gallops were noted. LUNGS: Clear to auscultation bilaterally without appreciable wheezes, rales or rhonchi. ABDOMEN: Soft, nontender, nondistended. Positive bowel sounds. EXTREMITIES: There is no clubbing, cyanosis or edema. ASA Class: II DESCRIPTION OF PROCEDURE: After confirmation of informed consent, the patient's anesthesia plan was reviewed in detail. Etomidate was chosen. Risks and benefits were reviewed and the patient agreed to proceed. At 12:19 PM, the patient was given 4 mg of etomidate. The patient achieved an appropriate level of sedation and received 1 attempt synchronized cardioversion, at [address] Scott at the bedside. This was successful in achieving normal sinus rhythm. The patient was monitored until 12:30 PM, at which time the patient reached their baseline mental status and function. The patient tolerated the procedure well. COMPLICATIONS: None ESTIMATED BLOOD LOSS: None RECOMMENDATIONS: Okay to recover in usual fashion. Procedures Pulmonary CF Procedures Pulmonary: 53242 Con Sedation
== END 2021-01-25 13:30 | disposition home or self-care (01) ==
LOC: CLSP 10:18
PROVIDERS: PCP Family Medicine; Referring Provider Internal Medicine Cardiovascular Disease; Visit Provider Internal Medicine Cardiovascular Disease
DX: I48.92 Unspecified atrial flutter (principal); I42.8 Other cardiomyopathies; I10 Essential (primary) hypertension; F17.210 Nicotine dependence, cigarettes, uncomplicated; Z86.718 Personal history of other venous thrombosis and embolism; Z79.02 Long term (current) use of antithrombotics/antiplatelets; Z79.899 Other long term (current) drug therapy
CPT/HCPCS: 92960; 93005; J7040

== ENCOUNTER → 2021-02-14 07:01 | Outpatient (CLI) | payer BC, SELFPAY ==
[2021-01-19 13:46] VITALS: BMI 27.2
[2021-02-01 14:10] VITALS: BMI 27.2
--- NOTE | 2021-02-14 07:08 | ECHOCS_ITS ---
Reason For Study: Afib, Aflutter Procedure This was a 2D Doppler, Color Flow transthoracic echocardiogram. Contrast injection was performed. Patient had a Definity Reaction. Exam performed in department. Left Ventricle Normal LV size. Left ventricular systolic function is normal. The estimated ejection fraction is 60 %. No regional wall motion abnormalities noted. Right Ventricle Normal RV size. Normal systolic function. Atria Normal left atrium. Normal right atrium. Mitral Valve Normal mitral valve. Tricuspid Valve Normal tricuspid valve. Mild tricuspid valve insufficiency. Aortic Valve Normal aortic valve. Trisinus/trileaflet aortic valve. Great Vessels Normal aortic root. The pulmonary artery is normal size. Normal inferior vena cava. Pericardium/Pleural No pericardial effusion. Medication Diluted definity 3ml given slow IV push to enhance endocardial definition. MMode/2D Measurements & Calculations LVIDd: 5.6 cm IVSd: 0.76 cm Ao root diam: 3.4 cm LVIDs: 3.7 cm LVPWd: 0.87 cm RVDd: 3.6 cm FS: 34.7 % LAV(MOD-bp): 54.8 ml LVAd ap4: 32.0 cm2 SV(MOD-sp4): 67.3 ml LAV(MOD-bp) Indexed: 25.2 ml/m2 LVLd ap4: 7.9 cm LAV(MOD-sp2): 59.4 ml EDV(MOD-sp4): 106.2 ml LAV(MOD-sp4): 54.3 ml EDV(sp4-el): 109.2 ml LVAs ap4: 17.3 cm2 LVLs ap4: 6.4 cm ESV(MOD-sp4): 38.9 ml ESV(sp4-el): 39.9 ml EF(MOD-sp4): 63.4 % EF(sp4-el): 63.5 % SV(sp4-el): 69.3 ml LA A4 area: 18.7 cm2 LA dimension(2D): 4.7 cm RA A4 area: 14.5 cm2 Doppler Measurements & Calculations MV E max eliceo: 80.0 cm/sec Lat Peak E' Eliceo: 9.6 cm/sec Med Peak E' Eliceo: 6.6 cm/sec MV A max eliceo: 27.6 cm/sec E/E' lat: 8.3 E/E' med: 12.0 MV E/A: 2.9 Ao V2 max: 96.0 cm/sec LV V1 max: 113.6 cm/sec PA V2 max: 77.8 cm/sec Ao max P.7 mmHg LV V1 max P.2 mmHg Ao V2 mean: 67.1 cm/sec Ao mean P.0 mmHg Ao V2 VTI: 22.4 cm TR max eliceo: 212.5 cm/sec TR max P.1 mmHg ECHO/Echo Complete W/ Contrast Interpretation Summary Normal LV size. Left ventricular systolic function is normal. The estimated ejection fraction is 60 %. Contrast injection was performed. Ordering Physician: Michele Perales Referring Physician: Jesus Echavarria Performed By: Savannah Perales, ANANDA, RVT
--- NOTE | 2021-02-14 16:15 | STRESSREP ---
Stress Test Report Exercise myocardial perfusion stress test. 60-year-old man with a history of atrial tachyarrhythmias. Stress protocol: Resting EKG demonstrates sinus bradycardia with a rate of 43 bpm right bundle branch block is noted. Resting blood pressure is 138/8 2 mmHg. The patient exercised according to regular Jj protocol for total duration of 10 minutes and 30 seconds. The maximum heart rate attained was 126 bpm which was 79% of maximum predicted heart rate the maximum workload was 12.5 metabolic equivalents. Patient completed 1 minute and 30 seconds into stage IV of the Jj protocol. At rest there were no ST or T wave changes noted to suggest ischemia and at peak exercise upsloping ST changes were noted with did not meet the criteria for ischemia. No clinical angina was noted the test was terminated due to leg fatigue. No atrial fibrillation was noted. The peak blood pressure was 190/76. No clinical angina was noted. Myocardial perfusion protocol. 11.1 mCi of technetium 99m sestamibi was injected at rest. The patient exercised according to regular Jj protocol for 10 minutes and 30 seconds and at peak exercise 33.7 mCi of technetium 99m sestamibi was injected stress images were obtained stress and rest images were reconstructed and compared in the short axis vertical long and horizontal long axis. Gated images were also obtained per Perfusion SPECT analysis: Review of the stress images demonstrated normal uptake of tracer noted in all areas of myocardium. The resting images similarly demonstrated normal uptake of tracer noted in all areas of the myocardium. No areas of reversibility are noted suggest ischemia the rest of the noe appear to have normal perfusion. Gated SPECT analysis: The gated ejection fraction is 64%. Conclusion: Normal exercise myocardial perfusion stress test at a high workload. Excellent functional with capacity. No atrial fibrillation noted. No clinical angina present.
== END ==
PROVIDERS: PCP Family Medicine; Referring Provider Internal Medicine Cardiovascular Disease; Visit Provider Internal Medicine Cardiovascular Disease
DX: I48.92 Unspecified atrial flutter (principal); R94.31 Abnormal electrocardiogram [ECG] [EKG]; I42.8 Other cardiomyopathies; I10 Essential (primary) hypertension; F17.210 Nicotine dependence, cigarettes, uncomplicated
CPT/HCPCS: 78452; 93017; 93306; A9500; Q9957; A4216; C8929; J3490

== ENCOUNTER → 2022-04-03 | Outpatient (CLI) | payer BC, SELFPAY ==
[2022-04-03 16:42] LABS: Absolute Lymphocyte Count 2.97 X10^3/uL (0.83-4.51); Absolute Neutrophil Count 6.9 X10^3/uL (2.0-7.7); Basophil% 0.9 % (0-1); Eosinophil# 0.39 X10^3/uL; Eosinophils% 3.4 % (0-5); Hematocrit 45.5 % (40-54); Hemoglobin 15.5 g/dL (13.0-16.5); Lymphocyte # 2.97 X10^3/ul (0.83-4.51); Lymphocyte % 25.6 % (19-41); Mean Corp Hgb Conc 34.1 g/dL (32-36); Mean Corpuscular Hgb 29.5 pg (27.0-32.0); Mean Corpuscular Volume 86.5 fL (80-94); Mean Platelet Vol. 11.4 fl (6.2-12.0); Monocyte# 1.23 X10^3/uL; Monocyte% 10.6 % (0-10); NRBC Flagged by Analyzer 0 % (0-5); Neutrophil # 6.86 X10^3/uL (2.7-7.7); Neutrophil % 59.1 % (47-70); Platelet Count 178 K/mm3 (150-450); RBC Distribution Width CV 13.4 % (11.6-14.6); RBC Distribution Width SD 42.3 fl (35.1-43.9); Red Blood Count 5.26 M/mm3 (4.6-6.2); White Blood Count 11.6 K/mm3 (4.4-11.0)
[2022-04-03 17:10] LABS: AST(SGOT) 18 U/L (15-37); Alanine Aminotransfer ALT/SGPT 31 U/L (16-61); Albumin, Serum 3.9 g/dL (3.2-5.0); Alkaline Phosphatase 90 U/L (45-117); Amylase 37 U/L (25-115); Anion Gap 4 (5-15); BUN 16 mg/dL (7-18); BUN/Creat Ratio 12.3 RATIO (10-20); Calcium,Total 9.6 mg/dL (8.5-10.1); Chloride 105 mmol/L (98-107); Cholesterol 179 mg/dL (200); EST Glomerular Filtration Rate 59 mL/min (>60); Est Glom Filt Rate - Afr Amer 72 mL/min (>60); Globulin 3.9 g/dL (2.2-4.2); Glucose 101 mg/dL (74-106); High Density Lipoprotein 27 mg/dL; Lipase 103 U/L (73-393); Potassium 4.6 mmol/L (3.5-5.1); Protein, Total 7.8 g/dL (6.4-8.2); Sodium Level 137 mmol/L (136-145); Thyroid Stim Hormone (TSH) 2.42 uIU/mL (0.358-3.74); Triglycerides 309 mg/dL; Very Low Density Lipoprotein 62 mg/dL (5-40)
== END | disposition home or self-care (01) ==
LOC: BIMLAB 15:44
PROVIDERS: PCP Family Medicine; Visit Provider Physician Assistant
DX: R06.6 Hiccough (principal)
CPT/HCPCS: 36415; 80053; 80061; 82150; 83690; 84443; 85025

== ENCOUNTER → 2022-04-20 | Outpatient (CLI) | payer BC, SELFPAY ==
--- NOTE | 2022-04-20 14:30 | CT_ITS ---
STUDY: CT ABDOMEN AND PELVIS WITH CONTRAST REASON FOR EXAM: Male, 62 years old. Hiccups X 2 WEEKS NOW GONE, R/o mass RADIATION DOSAGE (If Supplied By Facility): CTDIvol = ( 20.48 ) mGy, DLP = ( 1110.32 ) mGycm TECHNIQUE: Transaxial images were obtained from the dome of the diaphragm to the symphysis pubis with oral contrast. Oral and amp; IV Readi-CAT and amp; 100mL Isovue-300 was administered. Sagittal and coronal images were reconstructed. Individualized dose optimization techniques were used for this CT. COMPARISON: None. FINDINGS: The visualized lung bases are unremarkable. The visualized portions of the heart are within normal limits. There is decreased attenuation of the liver consistent with steatosis. Small gallstones are seen along the dependent portion of the gallbladder lumen. Normal spleen. There is a 1.6 on the splenule in the medial aspect of the spleen. Normal pancreas. Normal bilateral adrenal glands. There is a 2.8 cm x 3 cm cyst in the upper lateral aspect of the right kidney. Normal left kidney. There is diffuse circumferential thickening of the distal esophagus. Correlation with endoscopy is recommended. Normal small intestine. There are scattered colonic diverticula consistent with diverticulosis. The appendix is visualized and appears normal. There is scattered atherosclerotic calcification of the abdominal aorta, without a demonstrated aneurysm. Normal inferior vena cava. Normal retroperitoneum. Normal urinary bladder. Small right inguinal hernia containing fat. Normal osseous structures. CT/Abdomen/Pelvis WITH Contrast IMPRESSION: Fatty infiltration of the liver. Small gallstones are seen in the gallbladder lumen. Diffuse circumferential thickening of the distal esophagus. Correlation with endoscopy is recommended. Right renal cysts. Electronically Signed: Hoang Odom MD at 15:12 EDT ,
== END | disposition home or self-care (01) ==
LOC: CT 14:30
PROVIDERS: PCP Family Medicine; Referring Provider Physician Assistant; Visit Provider Physician Assistant
DX: R06.6 Hiccough (principal)
CPT/HCPCS: 74177; Q9967

== ENCOUNTER 2022-05-25 09:44 | Day surgery (SDC) | payer BC, SELFPAY ==
[2022-05-25] VITALS (8 sets, daily range): BP systolic 93–159; BP diastolic 62–116; PULSE 47–64; RESP 16; TEMP 36.5–36.6; O2SAT 95–100; BMI 26.4
--- NOTE | 2022-05-25 10:14 | PCM.HP.BLA ---
History and Physical Date of Admission: 05/25/22 Date of Service:? 05/12/22 MR#: [id number] Acct: [id number] Name:RIN ALEGRE Rep #: [id number] : 1960 Provider: Dr. Юлия Dick MD Age/Sex:? 62/M Location: [facility] Status: Signed Intake Vital Signs ? 05/12/2214:03 Height 6 ft 1 in Weight: 205 lb 4 oz BMI 27.1 BP 171/90 H Blood Pressure Location Rt brachial Position Sitting Respiration 18 Pulse 45 L Pulse Source NIBP Temp 97.5 F L Temp Source Temporal Pulse Oximetry (%) 100 Oxygen Delivery Method room air Intake Visit Reasons:?EGD FOR THICKENING OF ESOPHAGUS Chief Complaint: discuss EGD Junior Data Analyst Required: No Is patient in pain?: No Allergies perflutren [From [employer]] Allergy (Mild, Verified 05/12/22 14:04) Back pain Medications rivaroxaban 20 mg tablet 20 mg PO DAILY #90 tabs 07/19/21 [Rx Confirmed 05/12/22] lisinopril 10 mg tablet 10 mg PO DAILY #90 tabs 08/11/21 [Rx Confirmed 05/12/22] carvedilol 25 mg tablet 25 mg PO BID #180 tabs 01/11/22 [Rx Confirmed 05/12/22] metoclopramide HCl 10 mg tablet 10 mg PO Q8H #15 tabs 04/03/22 [Rx Confirmed 05/12/22] PFSH Medical History?(Updated 05/12/22 @ 16:[address] Юлия Dick MD) Atrial fibrillation Essential (primary) hypertension GERD (gastroesophageal reflux disease) Hearing loss associated with syndrome of right ear Nicotine dependence Non-ischemic cardiomyopathy Paroxysmal atrial flutter Thrombus of left atrial appendage Surgical History?(Updated 05/12/22 @ 14:03 by Saumya Ferreira) History of cardioversion (01/25/21) History of colonoscopy (~2013) Family History? Mother Diabetes HypertensionFather Pulmonary emboliBrother CAD (coronary artery disease) ?? ? <55 Social History?(Updated 04/03/22 @ 15:17 by RICHARD Thomas) Smoking Status:? Current every day smoker tobacco type: cigarettes alcohol intake:? never substance use type:? does not use caffeine:? Yes Type: carbonated beverages and tea Number of servings: 2 what type of physical activity do you participate in:? walking frequency:? daily duration:? 45-60 minutes/day seatbelt use:? always do you feel safe at home:? Yes HPI HPI HPI: 62-year-old male presents for EGD due to abnormal CT scan question thickening of the lower esophagus.? Patient denies having a previous EGD in the past.? Patient also denies any abdominal pain/reflux/burning up his esophagus.? Patient does mention he may have reflux but associates that with a 1 week a month ago he had continual hiccups.? Otherwise denies hiccups or increased belching at this time.? Patient is not on any antacids as well. ROS General General: No fatigue HEENT HEENT: No difficulty swallowing Skin Skin: No rash Cardio Cardiovascular: No chest pain Resp Respiratory: No shortness of breath Gastro Gastrointestinal: No abdominal pain, No nausea or vomiting, No blood in stool and No black,tarry stools Krishna Hematologic: Yes blood thinners and No bleeding Additional Details: Patient is on Xarelto Neuro Neurologic: No numbness and No tingling Exam Const General: cooperative, healthy appearing and no acute distress [facility] Head: normal to inspection Resp Effort & Inspection: normal respiratory effort Cardio Rate: regular rate GI Inspection: non-distended Palpation: soft, no guarding and nontender Skin General: no rashes or lesions noted Neuro General: patient oriented x3 Extrem General: no clubbing, cyanosis or edema Psych Affect: normal affect Assessment and Plan Assessment and Plan (1) Abnormal CT scan, esophagus: ?Status:?Acute Plan Patient does mention that he has reflux however when asked what his symptoms are he denies any abdominal pain/burning up his esophagus and just goes back to states that about a month ago he had a 1 week of hiccups which has resolved. I have discussed the above with the patient.? Patient will need to hold his Xarelto 2 days prior to procedure with the third day being the day of the procedure. I have offered the patient esophagogastroduodenoscopy for evaluation. I have explained the risks/benefits of the procedure and described the procedure.? I have discussed the risks with the patient, including but not limited to:? infection, bleeding, perforation of the GI tract requiring emergency surgery, inability to complete the procedure, injury to any internal organs, complications of anesthesia, etc. - the patient understands and agrees to proceed. I have answered all the patient's questions to the patient's satisfaction and the patient has no further questions. Юлия Dick M.D. Pager: [phone] [facility] [address] [place] [address], [address] [place] [address] Office: [phone] Coding Level of Care Code Off vis,new,level [address] scan, esophagus? R93.3 05/13/22 0545 <Electronically signed by Юлия Dick MD> Date Юлия Dick MD
[2022-05-25] MEDS: Lactated Ringers 1,000 ML 15 ML IV (10:19)
--- NOTE | 2022-05-25 11:00 | IMM_PTH ---
PATIENT: RIN DANIELLE LOC: [facility] U#:[id number] AGE/SX: 62/M ROOM: RE05/25/[address]: Dr. Юлия Dick MD : 1960 BED: DIS: 05/25/2022 SPEC #: [id number] RECD: 05/25/22 13:32 STATUS: CLARA REHeide #: [id number] SILVER: 05/25/22 11:[address]: Юлия Dick DEPT: IMMUNOHISTOCHEMISTRY RECD BY: Veronika Galvez ENTERED: 05/25/22 13:33 SP TYPE: IMMUNO OTHR DR: Dr. Jesus Echavarria, DO Tissues: A - Stomach, NOS B - Stomach, NOS Procedures: H Pylori (initial) KI-67 (add) P53 (add) PHYSICIAN & INSTITUTION [place] [address] SPECIMEN INFORMATION: Tissue Source: A ? Antrum ulcer biopsy, B ? Gastric body ulcer biopsy Clinical Info: Abnormal CT scan, esophagus Specimen Number: [id number] A & B CPT code: 13638 x2, 29832 x2 METHODOLOGY: Deparaffinized sections of prefer/formalin-fixed tissue or PAP/DQ stained slides are incubated with monoclonal/polyclonal antibodies/oligonucleotide probes. Localization is made via biotin free immunoperoxidase method. Appropriate controls are performed and reacted as expected. Results on target cell population are indicated in the following table: RESULTS: ANTIBODY / CLONE RESULT Block A H Pylori (polyclonal) negative P53 (DO-7) negative Ki-67 (30-9) negative Block B H Pylori (polyclonal) negative These tests were developed and their performance characteristics determined by [facility]. They may not have been cleared or approved by the U.S. Food and Drug Administration. The FDA has determined that such clearance or approval is not necessary. The above immunohistochemical/dualISH markers are ordered and reviewed by the Pathologist. INTERPRETATION: A. Antrum ulcer, biopsy: Negative for Helicobacter pylori organisms. B. Gastric body ulcer, biopsy: Negative for Helicobacter pylori organisms. AM:mey 05/30/2022
--- NOTE | 2022-05-25 11:00 | EGD_PTH ---
PATIENT: RIN DANIELLE LOC: [facility] U#:[id number] AGE/SX: 62/M ROOM: RE05/25/[address]: Dr. Юлия Dick MD : 1960 BED: DIS: 05/25/2022 SPEC #: [id number] RECD: 05/25/22 12:58 STATUS: CLARA ILSA #: [id number] SILVER: 05/25/22 11:[address]: Юлия Dick DEPT: SURGICAL PATHOLOGY RECD BY: Amy Thornton ENTERED: 05/25/22 13:21 SP TYPE: EGD BIOPSY OT DR: Dr. Jesus Echavarria, DO Tissues: A - Gastric mucous membrane B - Gastric mucous membrane C - Gastric mucous membrane Procedures: Special Stain Group II Surgery Specimen Level IV Alcian Blue/PAS (control) HEADER OPERATION: EGD (MAC), biopsy PRE-OP DIAGNOSIS: Abnormal CT scan, esophagus TISSUE SUBMITTED: A ? Antrum ulcer biopsy for histo and H. pylori, B ? Gastric body ulcer biopsy for histo and H. pylori, C ? Gastroesophageal junction biopsy MICROSCOPIC DIAGNOSIS A. Gastric antrum, biopsy: Mild chronic gastritis. Focal intestinal metaplasia. No evidence of dysplasia. See comment. B. Gastric body ulcer, biopsy: Mild chronic gastritis. See comment. C. Gastroesophageal junction, biopsy: Chronic inflammation. Focal changes of reflux. No evidence of goblet cell metaplasia. See comment. AM:mey 05/29/2022 COMMENT A. The results of immunohistochemistry for Helicobacter pylori will be reported separately ([id number]). Immunohistochemistry ([id number]) for P53 and Ki-67 will be performed and results will be reported separately. Alcian blue/PAS stain with matched control supports the above diagnosis. B. A definitive ulcer is not identified. Clinical correlation is suggested. The results of immunohistochemistry for Helicobacter pylori will be reported separately ([id number]). C. Alcian blue/PAS stain with matched control supports the above diagnosis. MICROSCOPIC DESCRIPTION Slides are reviewed. GROSS DESCRIPTION A - Received in fixative is one container labeled with the patient's name and designated antrum ulcer biopsy. The specimen consists of one irregular fragment of light loredo soft tissue that measures 0.4 x 0.3 x 0.1 cm. The specimen is totally submitted in one cassette. B - Received in fixative is one container labeled with the patient's name and designated gastric ulcer body biopsy. The specimen consists of one irregular fragment of light loredo soft tissue that measures 0.4 x 0.3 x 0.1 cm. The specimen is totally submitted in one cassette. C - Received in fixative is one container labeled with the patient's name and designated GE junction biopsy. The specimen consists of one irregular fragment of light loredo soft tissue that measures 0.5 x 0.3 x 0.1 cm. The specimen is totally submitted in one cassette. / SJ:rg 05/25/2022 TC:3 CPT: 85199 x3, 53936 x2
--- NOTE | 2022-05-25 11:17 | OP.EGD_ITS ---
Patient Name: Peter Weinstein Procedure Date: 05/25/2022 10:52 AM Date of : 1960 Age: 62 Procedure: Upper GI endoscopy Indications: Abnormal CT of the GI tract Providers: Юлия Dick MD Referring MD: Jesus Echavarria Medicines: Monitored Anesthesia Care Patient Profile: This is a 62 year old male. Complications: No immediate complications. Procedure: Pre-Anesthesia Assessment: - Prior to the procedure, a History and Physical was performed, and patient medications and allergies were reviewed. The patient's tolerance of previous anesthesia was also reviewed. The risks and benefits of the procedure and the sedation options and risks were discussed with the patient. All questions were answered, and informed consent was obtained. Prior Anticoagulants: The patient has taken Xarelto (rivaroxaban), last dose was 2 days prior to procedure. ASA Grade Assessment: Per anesthesia. After reviewing the risks and benefits, the patient was deemed in satisfactory condition to undergo the procedure. After obtaining informed consent, the endoscope was passed under direct vision. Throughout the procedure, the patient's blood pressure, pulse, and oxygen saturations were monitored continuously. The Endoscope was introduced through the mouth, and advanced to the second part of duodenum. The upper GI endoscopy was accomplished without difficulty. The patient tolerated the procedure well. Scope In: 10:59:44 AM Scope Out: 11:06:19 AM Total Procedure Duration Time 0 hours 6 minutes 35 seconds Findings: The Z-line was variable and was found 40 cm from the incisors. Biopsies were taken with a cold forceps for histology. No gross lesions were noted in the entire esophagus. Diffuse moderate inflammation with hemorrhage characterized by adherent blood, erythema and shallow ulcerations was found in the entire examined stomach. Biopsies were taken with a cold forceps for histology. Biopsies were taken with a cold forceps for Helicobacter pylori cultures. Mildly erythematous mucosa without active bleeding and with no stigmata of bleeding was found in the duodenal bulb. The first portion of the duodenum and second portion of the duodenum were normal. The cardia and gastric fundus were normal on retroflexion. Impression: - Z-line variable, 40 cm from the incisors. Biopsied. - No gross lesions in esophagus. - Gastritis with hemorrhage. Biopsied. - Erythematous duodenopathy. - Normal first portion of the duodenum and second portion of the duodenum. Recommendation: - Await pathology results. - Discharge patient to home. - Resume previous diet. - Continue present medications. - Use sucralfate tablets 1 gram PO QID for 1 month. - Use Protonix (pantoprazole) 40 mg PO daily. Procedure Code(s): --- Professional --- 20625, Esophagogastroduodenoscopy, flexible, transoral; with biopsy, single or multiple Diagnosis Code(s): --- Professional --- K22.8, Other specified diseases of esophagus K29.71, Gastritis, unspecified, with bleeding K31.89, Other diseases of stomach and duodenum R93.3, Abnormal findings on diagnostic imaging of other parts of digestive tract CPT copyright 2017 [employer]. All rights reserved. The codes documented in this report are preliminary and upon licensed acupuncturist review may be revised to meet current compliance requirements. MD Юлия Parsons MD 05/25/2022 11:17:02 AM This report has been signed electronically. Number of Addenda: 0 Note Initiated On: 05/25/2022 10:52 AM
--- NOTE | 2022-05-25 11:18 | OP.CCLET_ITS ---
05/25/2022 Jesus Echavarria Re : Upper GI endoscopy procedure for Peter Weinstein Dear Dr. Echavarria This procedure was performed on May. My impressions and recommendations are as follows: Impressions : - Z-line variable, 40 cm from the incisors. Biopsied. - No gross lesions in esophagus. - Gastritis with hemorrhage. Biopsied. - Erythematous duodenopathy. - Normal first portion of the duodenum and second portion of the duodenum. Recommendations : - Await pathology results. - Discharge patient to home. - Resume previous diet. - Continue present medications. - Use sucralfate tablets 1 gram PO QID for 1 month. - Use Protonix (pantoprazole) 40 mg PO daily. My findings are described in the full procedure note, which is enclosed. If I can be of further assistance, please feel free to contact me at Doctor phone number(s): , Work: . Sincerely, MD Юлия Parsons MD 05/25/2022 11:17:02 AM This report has been signed electronically.
== END 2022-05-25 12:35 | disposition home or self-care (01) ==
LOC: EN 09:45 → AC 09:46
PROVIDERS: PCP Family Medicine; Referring Provider Family Medicine; Visit Provider Surgery
PROC: 0DJ08ZZ Inspection of Upper Intestinal Tract, Via Natural or Artificial Opening Endoscopic (ICD-10-PCS; CPT 43235; principal; 2022-05-25 10:55)
DX: K25.9 Gastric ulcer, unspecified as acute or chronic, without hemorrhage or perforation (principal); I48.91 Unspecified atrial fibrillation; I48.92 Unspecified atrial flutter; K29.50 Unspecified chronic gastritis without bleeding; K21.9 Gastro-esophageal reflux disease without esophagitis; I10 Essential (primary) hypertension; H91.91 Unspecified hearing loss, right ear; F17.210 Nicotine dependence, cigarettes, uncomplicated; Z79.899 Other long term (current) drug therapy
CPT/HCPCS: 43239; 88305; 88313; 88341; 88342; J7120; J2405

== ENCOUNTER → 2022-08-18 | Outpatient (CLI) | payer BC, SELFPAY ==
[2022-08-18 11:43] LABS: Anion Gap 4 (5-15); BUN 17 mg/dL (7-18); BUN/Creat Ratio 14.2 RATIO (10-20); Calcium,Total 8.8 mg/dL (8.5-10.1); Chloride 107 mmol/L (98-107); EST Glomerular Filtration Rate 65 mL/min (>60); Est Glom Filt Rate - Afr Amer 79 mL/min (>60); Glucose 112 mg/dL (74-106); Potassium 3.9 mmol/L (3.5-5.1); Sodium Level 139 mmol/L (136-145)
== END | disposition home or self-care (01) ==
LOC: LAB 09:57
PROVIDERS: PCP Family Medicine; Referring Provider Nurse Practitioner Family; Visit Provider Nurse Practitioner Family
DX: I10 Essential (primary) hypertension (principal); I48.92 Unspecified atrial flutter
CPT/HCPCS: 36415; 80048

== ENCOUNTER 2024-08-05 14:00 | Observation (INO) | payer MEDICARE, OTHER, SELFPAY ==
[2024-08-05] VITALS (14 sets, daily range): BP systolic 108–157; BP diastolic 69–89; PULSE 51–63; RESP 14–18; TEMP 36.1–36.6; O2SAT 97–99; BMI 25.6; BMI 24.6
--- NOTE | 2024-08-05 14:23 | EKG12_ITS ---
Test Reason : AM EKG Blood Pressure : */* mmHG Vent. Rate : 48 BPM Atrial Rate : 48 BPM P-R Int : 182 ms QRS Dur : 138 ms QT Int : 472 ms P-R-T Axes : 76 -56 14 degrees QTcB Int : 421 ms Sinus bradycardia Right bundle branch block Left anterior fascicular block Bifascicular block Abnormal ECG When compared with ECG of 05-Aug-2024 20:19, MANUAL COMPARISON REQUIRED DATA IS UNCONFIRMED Confirmed by John Miranda ([id number]), field map editor GARRY LOONEY ([id number]) on 08/06/2024 8:18:32 AM Referred By: Confirmed By: John Miranda
[2024-08-05 14:42] LABS: Absolute Lymphocyte Count 3.12 X10^3/uL (0.83-4.51); Absolute Neutrophil Count 7.5 X10^3/uL (2.0-7.7); Basophil# 0.11 X10^3/uL; Basophil% 0.9 % (0-1); Hematocrit 50.4 % (40-54); Hemoglobin 16.8 g/dL (13.0-16.5); Lymphocyte # 3.12 X10^3/ul (0.83-4.51); Lymphocyte % 24.8 % (19-41); Mean Corp Hgb Conc 33.3 g/dL (32-36); Mean Corpuscular Hgb 29.2 pg (27.0-32.0); Mean Corpuscular Volume 87.5 fL (80-94); Mean Platelet Vol. 11.6 fl (6.2-12.0); Monocyte# 1.22 X10^3/uL; Monocyte% 9.7 % (0-10); NRBC Flagged by Analyzer 0 % (0-5); Neutrophil # 7.54 X10^3/uL (2.7-7.7); Platelet Count 198 K/mm3 (150-450); Red Blood Count 5.76 M/mm3 (4.6-6.2); White Blood Count 12.6 K/mm3 (4.4-11.0)
--- NOTE | 2024-08-05 14:53 | RAD_ITS ---
STUDY: X-RAY CHEST REASON FOR EXAM: Male, 64 years old. chest pain TECHNIQUE: PA and lateral views of the chest. COMPARISON: January 19, 2021 FINDINGS: No consolidation or infiltrates are seen. No visualized pleural effusion or pulmonary edema. Moderate cystic emphysematous changes are present. There is hyperinflation of the lungs consistent with chronic obstructive lung disease (COPD). There is no demonstrated pleural abnormality. Normal size heart. Normal mediastinum and perdo. Normal visualized pulmonary arteries. There is atherosclerotic calcification of the aortic arch with tortuosity. There are diffuse degenerative changes of the visualized thoracic spine. Normal visualized ribs, clavicles, and shoulders. There is no demonstrated abnormality of the visualized soft tissue structures of the upper abdomen. RAD/Chest PA and Lateral IMPRESSION: COPD/emphysema Electronically Signed: Monty Will MD at 15:04 EST ,
[2024-08-05 15:48] LABS: Anion Gap 6 (5-15); BUN 16 mg/dL (7-18); BUN/Creat Ratio 10.4 RATIO (10-20); Calcium,Total 9.3 mg/dL (8.5-10.1); Chloride 102 mmol/L (98-107); Creatinine, Serum 1.54 mg/dL (0.70-1.30); EST Glomerular Filtration Rate 48 mL/min (>60); Est Glom Filt Rate - Afr Amer 59 mL/min (>60); Estimated Creatinine Clearance 54.04 ml/min; Glucose 159 mg/dL (74-106); Sodium Level 136 mmol/L (136-145); Troponin-I HS (w/2H Reflex) 9 pg/mL (3.0-78.0)
--- NOTE | 2024-08-05 15:50 | ED.VIS.CHEST ---
HPI History of Present Illness Chief Complaint: Palpitations Informant: patient Narrative Narrative: Patient is a 64-year-old male with history of proximal atrial fibrillation (on carvedilol and Xarelto) as well as hypertension, on lisinopril, presenting for sudden onset of chest pain. Patient states he was sitting at the table when he started to have a sharp pain in the center of his chest. It lasted for about 10 minutes and then slowly subsided. He states he checked his heart rate and it was 177. He notes that he felt mildly short of breath and like he had to belch when this was going on. A symptoms of since resolved upon arriving to the emergency room. He states that about a month ago he felt that his heart went out of rhythm but then it corrected itself. He follows with cardiology and states his medicine was lowered back in April. He denies any recent swelling in his legs. He denies any fever or chills. Has had a mild intermittent cough. No other complaints or concerns reported at this time. Denies any black or blood in his stool. 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 Nicotine dependence Thrombus of left atrial appendage Home Medications ?Medication ?Instructions ?Recorded ?Last Taken ?Type rivaroxaban 20 mg tablet (Xarelto) 20 mg PO .COMPLEX #90 tabs 11/16/23 Unknown Rx lisinopril 10 mg tablet 10 mg PO BID #180 tabs 03/03/24 Unknown Rx carvedilol 6.25 mg tablet 6.25 mg PO BID #180 tabs 05/13/24 Unknown Rx carvedilol 12.5 mg tablet 12.5 mg PO DAILY 08/05/24 Unknown History Allergy/AdvReac Type Severity Reaction Status Date / Time perflutren (From [employer] Tablet Themes) Allergy Mild Back pain Verified 08/05/24 14:03 Family History Mother Diabetes Hypertension Father Pulmonary emboli Brother CAD (coronary artery disease) <55 Surgical History Hx of esophagogastroduodenoscopy History of colonoscopy (~2013) History of cardioversion (01/25/21) Social History Smoking Status: Current every day smoker tobacco type: cigarettes alcohol intake: never substance use type: does not use caffeine: Yes Type: carbonated beverages and tea Number of servings: 2 what type of physical activity do you participate in: walking frequency: daily duration: 45-60 minutes/day seatbelt use: always do you feel safe at home: Yes ROS ROS ED Constitutional Constitutional ED: Denies chills or fever(s) Cardiovascular Cardiovascular: Reports as per HPI, chest pain and racing heartbeat Respiratory/Chest Respiratory/Chest: Reports cough; Denies dyspnea Gastrointestinal Gastrointestinal: Denies abdominal pain, nausea or vomiting Musculoskeletal Musculoskeletal: Denies arthralgias or myalgias Integumentary Denies rash Neurologic Neurologic: Denies weakness Hematologic/Lymphatic Hematologic/Lymphatic: Reports easy bleeding, easy bruising and other Details: On Xarelto EXAM Physical Exam Const Vital Signs: 08/05/24 14:03 08/05/24 14:48 08/05/24 15:14 Temperature 97 F L Temperature Source Temporal Pulse Rate 60 Respiratory Rate 18 Blood Pressure 157/89 H Blood Pressure Mean 111 Pulse Ox 99 97 Oxygen Delivery Method Room Air Room Air 08/05/24 15:15 08/05/24 15:30 08/05/24 15:45 Temperature Temperature Source Pulse Rate 55 L Respiratory Rate 18 Blood Pressure 116/79 119/76 119/77 Blood Pressure Mean 90 90 87 Pulse Ox 97 97 97 Oxygen Delivery Method Positive well nourished and well developed General Appearance ED: well developed and NAD HEENT Reports moist mucous membranes HEENT Narrative: Hard of hearing Eyes PERRL Neck supple Chest Wall inspection of chest normal and palpation of chest normal Resp normal respiratory effort and clear to auscultation bilaterally Cardio regular rate, regular rhythm and no murmurs GI GI Narrative: 2+ radial DP pulses and radial pulses Extremity normal to inspection General Extremety ED: Negative for edema General Extremity: Negative for edema Neuro oriented x3 Sensorium / Orientation: awake and alert Motor Exam: Negative for general weakness Psych mental status grossly normal Skin no rashes or lesions noted and no wounds Heart Score History: Slightly/Non-Suspicious ECG: Nonspecific Repolarization Age: >/= 65 years Risk Factors: 1 or 2 Risk Factors Troponin: </= Normal Limit Score: 4 MDM MDM MDM Narrative Medical decision making narrative: Patient presents with an episode of palpitations and chest discomfort. Upon arrival patient is back in normal sinus rhythm. Differential includes proximal atrial fibrillation, ACS, chest wall pain, pneumonia, pneumothorax, symptomatic anemia. Low suspicion for pulmonary emboli given patient is anticoagulated. Will obtain cardiac workup including CBC, BMP, delta high sensitive troponin, chest x-ray and EKG. If workup is negative patient's heart score is 4 and he can likely be discharged home with outpatient cardiac follow-up. Patient counseled to increase his fluid intake as he does have a mild renal insufficiency with creatinine 1.54 however do not have any recent creatinine to compare to a question of this is chronic. Patient does have mild leukocytosis which is nonspecific and no signs of a pneumonia on his chest x-ray. He does have COPD/emphysema findings on chest x-ray viewed by myself as well as radiology. Patient signed out to oncoming physician pending delta high-sensitivity troponin. Patient counseled that if he has an episode of palpitations he could take an additional dose of his carvedilol at 6.25 mg but he should also follow-up with his sanding machine tender automatic. History & Record Review Additional record(s) reviewed:: Prior outpatient record (Cardiology office note and visit on 03/20/2024-carvedilol decreased from 12.5 mg twice daily to 6.25 mg twice daily) Lab Data Attestation: I reviewed the patient's lab results. Labs: Laboratory Results - last 24 hr 08/05/24 14:15 WBC 12.6 H RBC 5.76 Hgb 16.8 H Hct 50.4 MCV 87.5 MCH 29.2 MCHC 33.3 RDW Std Deviation 45.0 H RDW Coeff of [place] 14.0 Plt Count 198 MPV 11.6 Immature Gran % (Auto) 0.600 Neut % (Auto) 60.0 Lymph % (Auto) 24.8 [place] % (Auto) 9.7 Eos % (Auto) 4.0 Baso % (Auto) 0.9 Absolute Neuts (auto) 7.5 Absolute Lymphs (auto) 3.12 Nucleated RBC % 0 Sodium 136 Potassium 4.0 Chloride 102 Carbon Dioxide 28.0 Anion Gap 6 BUN 16 Creatinine 1.54 H Estim Creat Clear Calc 54.04 Est GFR (MDRD) Af Amer 59 L Est GFR (MDRD) Non-Af 48 L BUN/Creatinine Ratio 10.4 Glucose 159 H Calcium 9.3 Troponin I High Sens 9 Radiography Chest X-Ray - ED: 2 View, Read by ED Physician, Read by Radiologist, No Acute Disease and Chronic Changes Diagnostic Testing: Clinical Impression(s) from Imaging Studies Chest X-Ray 08/05/24 14:53 IMPRESSION: COPD/emphysema Electronically Signed: Monty Will MD at 15:04 EST Reading Location ID and State: [facility] / [place] , Service support , Rhythm Strip Rhythm Strip: Sinus Rhythm Rate: 60 Ectopy: None EKG Initial EKG: Attestation: I personally reviewed and interpreted this EKG as follows: Interpretation: Sinus Rhythm Comments: Normal sinus rhythm at a rate of 60 bpm Left axis deviation Right bundle branch block Nonspecific T wave changes in V2 and V3 however these are present on prior EKGs as well Normal ST segments Discharge Plan Triage Chief Complaint: Palpitations ED Provider: Lashonda Hoffman Dx/Rx/DC Orders Clinical Impression: Atrial fibrillation, Chest pain Instructions: ED Chest Pain, Uncertain Cause Prescriptions: No Action carvedilol 12.5 mg tablet 12.5 mg PO DAILY Xarelto 20 mg tablet 20 mg PO .COMPLEX Qty: 90 3RF Rx Instructions: Fax to [email or web address] lisinopril 10 mg tablet 10 mg PO BID Qty: 180 3RF carvedilol 6.25 mg tablet 6.25 mg PO BID Qty: 180 3RF Rx Instructions: must administer with a meal/food Primary Care Provider: Jesus Echavarria Referrals: Jesus Echavarria DO [Primary Care Provider] - John Miranda MD [Med Staff - Active Staff] - 1-2 Weeks Activity Restrictions/Additional Instructions: Your workup today was overall reassuring. Please follow-up with your sanding machine tender automatic. I suspect given your reported heart rate of 177 that you went into an episode of atrial fibrillation which is what caused the chest pain. If you do have another episode of high heart rate you may take an additional half dose of your carvedilol (6.25 mg). If you have worsening symptoms or further/longer lasting chest pain please return to the emergency room. You have some mild renal insufficiency on your lab work today. Please push fluids at home. Follow-up with your primary care doctor. I suspect this is chronic but do not have any recent labs to compare to. Print Language: Welsh Disposition Disposition: Home, Self Care
[2024-08-05 16:37] LABS: Reflex Troponin-HS? (from REC) Y
[2024-08-05 17:19] LABS: Troponin-I HS 36 pg/mL (3.0-78.0)
--- NOTE | 2024-08-05 18:29 | HP.PCM.HOS_ITS ---
HPI - General General Date of Admission: 08/05/24 Date of Service: 08/05/24 Chief Complaint: Chest pain HPI Narrative RIN DANIELLE, is a 64 M hx of afib, HTN, tobacco use who presented [facility] ED 08/05/2024 due to sudden onset of chest pain. He was sitting at the table and had sharp pain in the center of his chest that lasted 10 minutes and slowly subsided. He thought his heart rate at the time was 177 and felt mildly short of breath. Symptoms have since resolved. About 1 month ago heart went out of rhythm and corrected itself. He does follow with cardiology in outpatient basis. In the ED patient asymptomatic but a troponin of 9 that went up to 36 so hospitalist contacted for admission. Patient evaluated at bedside. Patient reports that he was in his usual health until he was sitting at the table earlier and had a pressure/heartburn like sensation and felt the need to be burp and took his pulse and noticed it was 177, he reported that lasted about 15 to 20 minutes and then slowly subsided, the chest pressure/heartburn-like sensation correlated with the elevated heart rate. He had a little bit of difficulty with shortness of breath during this episode but that too is resolved. Symptoms are completely resolved and have been since heart rate improved. 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 Heartburn History of atrial fibrillation History of diverticulitis History of echocardiogram History of stress test Hypertension Nicotine dependence Non-ischemic cardiomyopathy Paroxysmal atrial flutter Pulmonary embolism Smoker Syncope Thrombus of left atrial appendage Wears dentures Home Medications ?Medication ?Instructions ?Recorded ?Last Taken ?Type rivaroxaban 20 mg tablet (Xarelto) 20 mg PO .COMPLEX #90 tabs 11/16/23 Unknown Rx lisinopril 10 mg tablet 10 mg PO BID #180 tabs 03/03/24 Unknown Rx carvedilol 6.25 mg tablet 6.25 mg PO BID #180 tabs 05/13/24 Unknown Rx carvedilol 12.5 mg tablet 12.5 mg PO DAILY 08/05/24 Unknown History Allergy/AdvReac Type Severity Reaction Status Date / Time perflutren (From [employer] Allergy Mild Back pain Verified 08/05/24 14:03 Family History Mother Diabetes Hypertension Father Pulmonary emboli Brother CAD (coronary artery disease) <55 Surgical History History of cardioversion (01/25/21) History of colonoscopy (~2013) Hx of esophagogastroduodenoscopy Social History Smoking Status: Current every day smoker tobacco type: cigarettes alcohol intake: never substance use type: does not use caffeine: Yes Type: carbonated beverages and tea Number of servings: 2 what type of physical activity do you participate in: walking frequency: daily duration: 45-60 minutes/day seatbelt use: always do you feel safe at home: Yes ROS ROS Narrative General: Denies fever/chills HENT: Denies headache, denies stuffy nose, denies sore throat EYES: Denies changes in vision Resp: Denies cough, denies shortness of breath Cardiac: Denies chest pain at present GI: Denies abdominal pain, denies changes in bowel, denies nausea/vomiting : Denies changes in urination Extremity: Denies swelling MSK: Denies weakness Neuro: Denies any numbness/tingling Heme: Denies any bleeding or bruising Skin: Denies rashes Psychiatric: No complaints voiced Vital Signs Vital Signs Vital Signs: 08/05/24 14:03 08/05/24 14:48 08/05/24 15:14 Temperature 97 F L Temperature Source Temporal Pulse Rate 60 Respiratory Rate 18 Blood Pressure 157/89 H Blood Pressure Mean 111 Pulse Ox 99 97 Oxygen Delivery Method Room Air Room Air 08/05/24 15:15 08/05/24 15:30 08/05/24 15:45 Temperature Temperature Source Pulse Rate 55 L Respiratory Rate 18 Blood Pressure 116/79 119/76 119/77 Blood Pressure Mean 90 90 87 Pulse Ox 97 97 97 Oxygen Delivery Method 08/05/24 16:00 08/05/24 16:15 08/05/24 16:30 Temperature Temperature Source Pulse Rate 59 L 54 L 63 Respiratory Rate 17 16 18 Blood Pressure 119/73 119/75 120/69 Blood Pressure Mean 88 90 82 Pulse Ox 97 97 99 Oxygen Delivery Method 08/05/24 16:45 08/05/24 17:00 08/05/24 17:15 Temperature Temperature Source Pulse Rate 53 L 53 L 51 L Respiratory Rate 18 16 14 Blood Pressure 121/78 H 124/79 H 108/75 Blood Pressure Mean 93 92 86 Pulse Ox 99 99 98 Oxygen Delivery Method 08/05/24 17:40 Temperature 97.7 F L Temperature Source Pulse Rate 54 L Respiratory Rate 17 Blood Pressure 137/85 H Blood Pressure Mean 102 Pulse Ox 98 Oxygen Delivery Method Weight Weight: 88.224 kg Body Mass Index (BMI) 25.6 Physical Exam Narrative General: Alert, oriented, no apparent distress HEENT: Atraumatic, normocephalic Eyes: Anicteric, normal conjunctiva, extraocular movements grossly intact Neck: Supple Respiratory: Clear to auscultation bilaterally, normal respiratory effort Cardiovascular: Regular rate and rhythm GI: Soft, nontender, nondistended Extremities: No edema Musculoskeletal: Moving all extremities Neuro: No overt focal neurological deficits Skin: No rashes appreciated Psych: Cooperative Results Lab / Micro Data 08/05/24 14:15 08/05/24 14:15 Labs: Laboratory Results - last 24 hr 08/05/24 14:15: WBC 12.6 H, RBC 5.76, Hgb 16.8 H, Hct 50.4, MCV 87.5, MCH 29.2, MCHC 33.3, RDW Std Deviation 45.0 H, RDW Coeff of [place] 14.0, Plt Count 198, MPV 11.6, Immature Gran % (Auto) 0.600, Neut % (Auto) 60.0, Lymph % (Auto) 24.8, [place]ard % (Auto) 9.7, Eos % (Auto) 4.0, Baso % (Auto) 0.9, Absolute Neuts (auto) 7.5, Absolute Lymphs (auto) 3.12, Nucleated RBC % 0, Sodium 136, Potassium 4.0, Chloride 102, Carbon Dioxide 28.0, Anion Gap 6, BUN 16, Creatinine 1.54 H, Estim Creat Clear Calc 54.04, Est GFR (MDRD) Af Amer 59 L, Est GFR (MDRD) Non-Af 48 L, BUN/Creatinine Ratio 10.4, Glucose 159 H, Calcium 9.3, Troponin I High Sens 9 08/05/24 16:23: Troponin I High Sens 36 Rhythm Strip Rhythm Strip: Sinus Rhythm Rate: 60 Ectopy: None Imaging Radiology Impression Chest X-Ray 08/05/24 14:53 IMPRESSION: COPD/emphysema Electronically Signed: Monty Will MD at 15:04 EST Reading Location ID and State: [address] [place] [address] , Service support , Assessment & Plan Assessment/Plan (1) Chest pain: PLAN: Plan #Chest pain -Presently resolved but due to delta troponin positive patient to be admitted -Query if this was due to episode of A-fib with RVR given elevated heart rate directly correlated with his chest pain -EKG normal sinus rhythm with right bundle branch block and rate of 60 -Trop 9 and trended up to 36, continue to trend -Admit to telemetry -Echo ordered -Aspirin -Statin -Lipid panel in AM -Stress test ordered for AM unless patient has rapid further elevation of troponins #pafib w/ RVR -RVR pre hospital, back in sinus rhythm -patient had his carvedilol reduced several months ago due to bradycardia, had not noted any problem since that time -Will continue carvedilol at current dose given heart rates 50s to 60s, if he has further episodes may need cardiology consultation or consideration of alternative agent -TSH and magnesium ordered -Echocardiogram -Continue anticoagulation # Renal insufficiency -Creatinine 1.54, no values available since 2021 so unclear if this is acute or chronic -Repeat in a.m. #Hypertension -Suspect patient's kidney function may be at baseline, will continue both carvedilol and lisinopril #Tobacco use -Advise cessation -Nicotine replacement available if desired #DVT ppx: adriel Simpson MD Charges/Coding Visit Charges Inpatient E&M: 56679 Init Hosp L2
--- NOTE | 2024-08-05 18:38 | ECHOD_ITS ---
Reason For Study: CHEST PAIN Procedure This was a 2D Doppler, Color Flow transthoracic echocardiogram. Exam performed in department. Left Ventricle Normal LV size. The estimated ejection fraction is 60 %. No evidence for diastolic dysfunction. No regional wall motion abnormalities noted. Right Ventricle Normal RV size. Normal systolic function. Atria The left and right atria are normal. No doppler evidence for ASD. Mitral Valve There is no mitral valve stenosis. No mitral valve insufficiency. Tricuspid Valve There is no tricuspid stenosis. Trivial tricuspid valve insufficiency. Pulmonary artery systolic pressure is 20 mmHg. Aortic Valve Trisinus/trileaflet aortic valve. There is no aortic stenosis. No aortic valve insufficiency. Pulmonic Valve There is no pulmonic valvular stenosis. No pulmonic valve insufficiency. Great Vessels Normal aortic root. Pericardium/Pleural No pericardial effusion. MMode/2D Measurements & Calculations LVIDd: 4.9 cm IVSd: 0.90 cm Ao root diam: 3.4 cm LVIDs: 3.3 cm LVPWd: 0.97 cm RVDd: 3.3 cm FS: 32.8 % LAV(MOD-bp): 40.6 ml LVAd ap4: 26.2 cm2 SV(MOD-sp4): 47.5 ml LAV(MOD-bp) Indexed: 19.1 ml/m2 LVLd ap4: 7.4 cm SI(MOD-sp4): 22.4 ml/m2 LAV(MOD-sp2): 42.0 ml EDV(MOD-sp4): 76.5 ml LAV(MOD-sp4): 38.3 ml EDV(sp4-el): 78.8 ml LVAs ap4: 14.3 cm2 LVLs ap4: 6.1 cm ESV(MOD-sp4): 28.9 ml ESV(sp4-el): 28.6 ml EF(MOD-sp4): 62.2 % EF(sp4-el): 63.7 % SV(sp4-el): 50.2 ml LA A4 area: 15.2 cm2 LA dimension(2D): 3.5 cm RA A4 area: 14.2 cm2 TAPSE: 1.8 cm Time Measurements MV dec time: 0.21 sec Doppler Measurements & Calculations MV E max eliceo: 64.1 cm/sec Lat Peak E' Eliceo: 13.5 cm/sec Med Peak E' Eliceo: 10.7 cm/sec MV A max eliceo: 49.9 cm/sec E/E' lat: 4.8 E/E' med: 6.0 MV E/A: 1.3 Ao V2 max: 136.8 cm/sec LV V1 max: 107.7 cm/sec PA V2 max: 85.5 cm/sec Ao max P.5 mmHg LV V1 max P.6 mmHg TR max eliceo: 186.8 cm/sec TR max P.0 mmHg ECHO/Echo Complete Interpretation Summary The estimated ejection fraction is 60 %. No evidence for diastolic dysfunction. Ordering Physician: Ely Simpson Referring Physician: EVANGELINA DENIS Performed By: Elva Cason RDCS
[2024-08-05] MEDS: Lisinopril 10 MG Tablet PO (20:55)
[2024-08-05] MEDS: Carvedilol 3.125 MG TABLET PO (21:00)
[2024-08-05 21:01] LABS: Troponin-I HS 52 pg/mL (3.0-78.0)
--- NOTE | 2024-08-05 21:37 | EKG12_ITS ---
Test Reason : ADMIT TO FLOOR Blood Pressure : */* mmHG Vent. Rate : 50 BPM Atrial Rate : 50 BPM P-R Int : 170 ms QRS Dur : 136 ms QT Int : 454 ms P-R-T Axes : 36 -65 28 degrees QTcB Int : 413 ms Sinus bradycardia with Premature atrial complexes Right bundle branch block Left anterior fascicular block Bifascicular block Abnormal ECG When compared with ECG of 05-Aug-2024 14:16, MANUAL COMPARISON REQUIRED DATA IS UNCONFIRMED Confirmed by John Miranda ([id number]), research editor GARRY LOONEY ([id number]) on 08/06/2024 8:18:45 AM Referred By: Confirmed By: John Miranda
[2024-08-06 03:00] VITALS: BP 111/64; PULSE 48; RESP 16; TEMP 36.6; O2SAT 96
--- NOTE | 2024-08-06 05:55 | EKG12_ITS ---
Test Reason : PALPITIONS Blood Pressure : */* mmHG Vent. Rate : 60 BPM Atrial Rate : 60 BPM P-R Int : 168 ms QRS Dur : 132 ms QT Int : 426 ms P-R-T Axes : 52 -68 36 degrees QTcB Int : 426 ms Normal sinus rhythm LAFB Right bundle branch block Abnormal ECG Confirmed by John Miranda ([id number]), proposal editor GARRY LOONEY ([id number]) on 08/08/2024 6:47:20 AM Referred By: Confirmed By: John Miranda
[2024-08-06 06:15] VITALS: BP 102/68; PULSE 50; RESP 16; TEMP 36.4; O2SAT 97
[2024-08-06 07:31] LABS: Absolute Lymphocyte Count 3.19 X10^3/uL (0.83-4.51); Basophil% 0.8 % (0-1); Eosinophil# 0.46 X10^3/uL; Eosinophils% 3.8 % (0-5); Hematocrit 46.9 % (40-54); Hemoglobin 15.1 g/dL (13.0-16.5); Lymphocyte # 3.19 X10^3/ul (0.83-4.51); Lymphocyte % 26.5 % (19-41); Mean Corp Hgb Conc 32.2 g/dL (32-36); Mean Corpuscular Hgb 28.2 pg (27.0-32.0); Mean Corpuscular Volume 87.5 fL (80-94); Mean Platelet Vol. 11.1 fl (6.2-12.0); NRBC Flagged by Analyzer 0 % (0-5); Neutrophil # 7.02 X10^3/uL (2.7-7.7); Neutrophil % 58.4 % (47-70); Platelet Count 179 K/mm3 (150-450); RBC Distribution Width CV 14.2 % (11.6-14.6); RBC Distribution Width SD 45.2 fl (35.1-43.9); Red Blood Count 5.36 M/mm3 (4.6-6.2)
[2024-08-06 08:37] LABS: International Normalized Ratio 1.2; Prothrombin Time (Protime)PT. 15.3 SECONDS (11.7-14.9)
[2024-08-06 08:55] LABS: Anion Gap 6 (5-15); BUN 15 mg/dL (7-18); BUN/Creat Ratio 12.5 RATIO (10-20); Calcium,Total 9.1 mg/dL (8.5-10.1); Chloride 107 mmol/L (98-107); Cholesterol 224 mg/dL (200); EST Glomerular Filtration Rate 65 mL/min (>60); Est Glom Filt Rate - Afr Amer 78 mL/min (>60); Estimated Creatinine Clearance 69.36 ml/min; Glucose 103 mg/dL (74-106); High Density Lipoprotein 35 mg/dL; Magnesium 2.2 mg/dL (1.6-2.6); Potassium 4.5 mmol/L (3.5-5.1); Sodium Level 139 mmol/L (136-145); Triglycerides 159 mg/dL; Very Low Density Lipoprotein 32 mg/dL (5-40)
--- NOTE | 2024-08-06 10:12 | PN.HOSP_ITS ---
Reason for Visit Reason for Visit: Diagnoses Chest pain, unspecified (08/05/24) Objective Data Objective Data Vital Signs: Vital Signs Temp Pulse Resp BP Pulse Ox O2 Del Method 97.6 F L 50 L 16 102/68 97 Room Air 08/06/24 06:15 08/06/24 06:15 08/06/24 06:15 08/06/24 06:15 08/06/24 06:15 08/06/24 09:47 Oxygen Delivery Method Room Air Weight: 186 lb 11.704 oz Body Mass Index (BMI) 24.6 Lab / Micro Data 08/06/24 05:15 08/06/24 05:15 Labs: Laboratory Results - last 24 hr 08/05/24 14:15: WBC 12.6 H, RBC 5.76, Hgb 16.8 H, Hct 50.4, MCV 87.5, MCH 29.2, MCHC 33.3, RDW Std Deviation 45.0 H, RDW Coeff of [place] 14.0, Plt Count 198, MPV 11.6, Immature Gran % (Auto) 0.600, Neut % (Auto) 60.0, Lymph % (Auto) 24.8, Hubbard % (Auto) 9.7, Eos % (Auto) 4.0, Baso % (Auto) 0.9, Absolute Neuts (auto) 7.5, Absolute Lymphs (auto) 3.12, Nucleated RBC % 0, Sodium 136, Potassium 4.0, Chloride 102, Carbon Dioxide 28.0, Anion Gap 6, BUN 16, Creatinine 1.54 H, Estim Creat Clear Calc 54.04, Est GFR (MDRD) Af Amer 59 L, Est GFR (MDRD) Non-Af 48 L, BUN/Creatinine Ratio 10.4, Glucose 159 H, Calcium 9.3, Troponin I High Sens 9 08/05/24 16:23: Troponin I High Sens 36 08/05/24 20:25: Troponin I High Sens 52 08/06/24 05:15: WBC 12.0 H, RBC 5.36, Hgb 15.1, Hct 46.9, MCV 87.5, MCH 28.2, MCHC 32.2, RDW Std Deviation 45.2 H, RDW Coeff of [place] 14.2, Plt Count 179, MPV 11.1, Immature Gran % (Auto) 0.500, Neut % (Auto) 58.4, Lymph % (Auto) 26.5, Hubbard % (Auto) 10.0, Eos % (Auto) 3.8, Baso % (Auto) 0.8, Absolute Neuts (auto) 7.0, Absolute Lymphs (auto) 3.19, Nucleated RBC % 0, PT 15.3 H, INR 1.2, Sodium 139, Potassium 4.5, Chloride 107, Carbon Dioxide 26.0, Anion Gap 6, BUN 15, Creatinine 1.20, Estim Creat Clear Calc 69.36, Est GFR (MDRD) Af Amer 78, Est GFR (MDRD) Non-Af 65, BUN/Creatinine Ratio 12.5, Glucose 103, Calcium 9.1, Magnesium 2.2, Triglycerides 159, Cholesterol 224 H, LDL Cholesterol 157 H, VLDL Cholesterol 32, HDL Cholesterol 35 L, TSH 1.750 Radiography Diagnostic Testing: Radiology Impression Chest X-Ray 08/05/24 14:53 IMPRESSION: COPD/emphysema Electronically Signed: Monty Will MD at 15:04 EST Reading Location ID and State: [address] [place] [address] , Service support , Rhythm Strip Rhythm Strip: Sinus Rhythm Rate: 60 Ectopy: None Assessment & Plan Assessment/Plan (1) Chest pain: PLAN: Plan #Chest pain -Presently resolved but due to delta troponin positive patient to be admitted -Query if this was due to episode of A-fib with RVR given elevated heart rate directly correlated with his chest pain -EKG normal sinus rhythm with right bundle branch block and rate of 60 -Trop 9 and trended up to 36, continue to trend -Admit to telemetry -Echo ordered -Aspirin -Statin -Lipid panel in AM -Stress test ordered for AM unless patient has rapid further elevation of troponins #pafib w/ RVR -RVR pre hospital, back in sinus rhythm -patient had his carvedilol reduced several months ago due to bradycardia, had not noted any problem since that time -Will continue carvedilol at current dose given heart rates 50s to 60s, if he has further episodes may need cardiology consultation or consideration of alternative agent -TSH and magnesium ordered -Echocardiogram -Continue anticoagulation # Renal insufficiency -Creatinine 1.54, no values available since 2021 so unclear if this is acute or chronic -Repeat in a.m. #Hypertension -Suspect patient's kidney function may be at baseline, will continue both carvedilol and lisinopril #Tobacco use -Advise cessation -Nicotine replacement available if desired #DVT ppx: [email or web address]
[2024-08-06 10:25] VITALS: BP 119/82; PULSE 52; RESP 18; TEMP 36.6; O2SAT 95
[2024-08-06] MEDS: Carvedilol 3.125 MG TABLET PO (10:32)
--- NOTE | 2024-08-06 11:40 | PCM.DC ---
Discharge Instructions Diet Discharge Diet: No restrictions DC O2, CPAP, BIPAP needs Additional Home O2 Discharge instructions: No Dressing / Incision Discharge Activity: Return to Normal Activity Weight Bearing Status: Weight bearing as tolerated Dressing / Incision Call your doctor if you observe: Fever of 101 or Higher, Coldness, Increased Pain, Numbness or Tingling, Change in Color, Inability to urinate, Inability to have a bowel movement, Shortness of breath, Dizziness, Fainting spells, Swelling in the ankles, Chest pain, Prolonged hiccupping, Increased palpitations (irregular heartbeat) and Calf discomfort Follow Up Care When: IN 2 WEEKS Test Results: Test results from this visit will be discussed in further detail at your follow-up appointment, if applicable. Discharge Plan Admission Admit Date/Time: 08/05/24 18:29 Primary Reason for Your Visit: Atypical chest pain Attending Provider: Bert Pickens Primary Care Provider: Jesus Echavarria Consulting Providers: Ely Simpson Instructions Patient Instructions: ED Chest Pain, Uncertain Cause Additional Instructions / Restrictions: Your workup today was overall reassuring. 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 I suspect given your reported heart rate of 177 that you went into an episode of atrial fibrillation which is what caused the chest pain. If you do have another episode of high heart rate you may take an additional half dose of your carvedilol (6.25 mg). If you have worsening symptoms or further/longer lasting chest pain please return to the emergency room. You have some mild renal insufficiency on your lab work today. Please push fluids at home. Follow-up with your primary care doctor. I suspect this is chronic but do not have any recent labs to compare to. Discharge Orders/Prescriptions Prescriptions: New atorvastatin 40 mg Tablet 40 mg PO QHS 30 Days Qty: 30 2RF Continued Xarelto 20 mg tablet 20 mg PO DAILY Rx Instructions: Fax to [facility] lisinopril 10 mg tablet 10 mg PO BID Qty: 180 3RF carvedilol 6.25 mg tablet 6.25 mg PO BID Qty: 180 3RF Rx Instructions: must administer with a meal/food Discontinued carvedilol 12.5 mg tablet 12.5 mg PO DAILY Referrals / Follow Up: Jesus Echavarria, [Primary Care Provider] - John Miranda MD [Med Staff - Active Staff] - 1-2 Weeks Disposition Disposition (needs filled in before D/C Order can be placed): Home, Self Care
--- NOTE | 2024-08-06 12:18 | STRESSREP ---
Stress Test Report Date: 08/06/2024 Procedure: Exercise tolerance test/imaging study Indications: Chest pain Consent: Per the patient Procedure: The patient exercised on a Jj protocol for 9 minutes achieving a peak heart rate of 125 bpm (80% predicted maximal heart rate) with a peak blood pressure 172/68 mmHg and a peak MET capacity of 10.1 METs. The baseline ECG demonstrated normal sinus rhythm, right bundle branch block, left anterior fascicular block. The peak exercise ECG demonstrated no significant ischemic changes. EKG during recovery revealed no significant ischemic changes [There were no cardiac dysrhythmias pretest, during exercise, or recovery]. The functional capacity was considered excellent for age. There was [no complaint of chest discomfort during exercise or recovery]. The examination was discontinued secondary to dyspnea, leg discomfort. Impression: 1. Technically adequate (percent predicted maximal heart rate greater than 85%) exercise tolerance test 2. Stress test is negative for exercise-induced EKG changes of ischemia 3. The test test is negative for exercise-induced chest pain 4. Functional capacity is excellent for age 5. Nuclear images pending Myocardial perfusion imaging study: Technique: The patient was injected with [] mCi of technetium 99m Cardiolite and subsequently rest SPECT Cardiolite nuclear imaging was obtained in the horizontal long, vertical long, and short axis views. The patient exercised on a Jj protocol. Please see above for details. The patient was injected with [] mCi of technetium 99m Cardiolite and subsequently stress SPECT Cardiolite nuclear imaging was obtained in the horizontal long, vertical long, and short axis views. A gated Cardiolite study at peak stress was obtained. Interpretation: Rest and stress SPECT Cardiolite nuclear imaging status post realignment, normalization, and attenuation correction, demonstrates normal myocardial radioisotope uptake. The gated Cardiolite study demonstrates no significant regional wall motion abnormalities. The reported LVEF is greater than 70%. Impression: 1. There is no evidence of significant ischemia or infarction. 2. The gated Cardiolite study reports an LVEF of greater than 70%. This note was generated with ClientShowation software. It may contain incorrect words, spelling, and punctuation that were not noted in checking the note before signing.
[2024-08-06 14:01] VITALS: BP 115/72; PULSE 53; RESP 16; TEMP 36.5; O2SAT 97
[2024-08-06] MEDS: Rivaroxaban 20 MG Tablet PO (14:09)
--- NOTE | 2024-08-06 16:04 | PCM.DC.SUM ---
Providers Date of Admission: 08/05/24 Date of Discharge: 08/06/24 Primary Care Physician: Dr. Evangelina Echavarria, DO Reason For Visit: CHEST PAIN R/O Diagnosis Discharge Diagnosis (1) Chest pain: Status: Acute Code(s): R07.9 - Chest pain, unspecified Plan 64-year-old gentleman was admitted with sudden onset of chest pain on the right/center side of the heart without radiation. It was sharp quality associated with mild shortness of breath. Patient was also in A-fib RVR with heart rate 177/min. Chest pain lasted for about 10 to 20 minutes 1. Atypical chest pain probably due to A-fib with RVR: Patient was admitted in PCU. Serial high-sensitivity troponin were negative though delta troponin was little elevated. -EKG normal sinus rhythm with right bundle branch block and rate of 60/m. Stress test and echo reviewed with the patient and his -Patient had nuclear stress test which reported no evidence of ischemia or infarct. -2D echo also reviewed, EF 60% with no significant valvular abnormality. No RWMA -Lipid panel shows elevated LDL and total cholesterol therefore started on atorvastatin 40 mg daily and prescription sent to the patient's preferred pharmacy 2. Pafib w/ RVR -RVR pre hospital, back in sinus rhythm -patient had his carvedilol reduced several months ago due to bradycardia, had not noted any problem since that time Carvedilol continued at the same dose 6.25 mg twice daily and patient heart rate is is about 50-60 per med. Currently patient in sinus rhythm. TSH 1.75. Serum magnesium 2.2 and potassium normal -On Xarelto 20 mg daily # MARSHA on CKD stage 2 -Creatinine 1.54, improved to 1.20. Patient baseline creatinine is about 1.20. #Hypertension: Blood pressure is controlled on carvedilol and lisinopril. #Tobacco use -Advise cessation -Nicotine replacement available if desired #DVT ppx: xeralto Laboratory Results 08/05/24 16:23: Troponin I High Sens 36 08/05/24 20:25: Troponin I High Sens 52 08/06/24 05:15: WBC 12.0 H, RBC 5.36, Hgb 15.1, Hct 46.9, MCV 87.5, MCH 28.2, MCHC 32.2, RDW Std Deviation 45.2 H, RDW Coeff of [place] 14.2, Plt Count 179, MPV 11.1, Immature Gran % (Auto) 0.500, Neut % (Auto) 58.4, Lymph % (Auto) 26.5, Custer % (Auto) 10.0, Eos % (Auto) 3.8, Baso % (Auto) 0.8, Absolute Neuts (auto) 7.0, Absolute Lymphs (auto) 3.19, Nucleated RBC % 0, PT 15.3 H, INR 1.2, Sodium 139, Potassium 4.5, Chloride 107, Carbon Dioxide 26.0, Anion Gap 6, BUN 15, Creatinine 1.20, Estim Creat Clear Calc 69.36, Est GFR (MDRD) Af Amer 78, Est GFR (MDRD) Non-Af 65, BUN/Creatinine Ratio 12.5, Glucose 103, Calcium 9.1, Magnesium 2.2, Triglycerides 159, Cholesterol 224 H, LDL Cholesterol 157 H, VLDL Cholesterol 32, HDL Cholesterol 35 L, TSH 1.750 Medications at Discharge Home Medications lisinopril 10 mg tablet 10 mg PO BID #180 tabs 03/03/24 carvedilol 6.25 mg tablet 6.25 mg PO BID #180 tabs 05/13/24 rivaroxaban 20 mg tablet (Xarelto) 20 mg PO DAILY 08/05/24 atorvastatin 40 mg tablet 40 mg PO QHS 30 days #30 tabs 08/06/24 Physical Exam Narrative Seen and examined. Chest pain is resolved. Patient back to baseline. Denies recent anginal-like symptoms or DC. No prior history of DC/angioplasty or cardiac stent. Never been a smoker. Physical exam General: Alert, Oriented x3, Cooperative HEENT: Atraumatic, PERRLA, EOMI, Normocephalic Oral: No Gingival or Mucosal Lesions/ Ulcerations Neck: Supple, No JVD, Negative Carotid Bruits Chest wall/Lungs: Air entry diminished in bilateral lung bases. No crepitation/rhonchi Cardiovascular: Regular rate, Regular Rhythm, Normal S1, Normal S2, No M/G/R Abdomen: Bowel Sounds Present, Soft, Non Tender, Non-Distended : No dysuria. No renal angle tenderness. No suprapubic tenderness. Extremities: No edema, Capillary Refill Less than 3 Seconds Skin: No rashes, No breakdown Musculoskeletal: No Tenderness to Palpation of Joints or Extremities Neurological: Cranial nerves II-XII grossly intact, DTR 2+/4. No acute focal neurological deficit. Psych/Mental Status: Normal Affect, Appropriate. Weight / BMI Weight Weight: 186 lb 11.704 oz Body Mass Index (BMI) 24.6 ABG / Lab / Microbiology Data 08/06/24 05:15 08/06/24 05:15 Laboratory: Laboratory Results - last 24 hr 08/05/24 16:23: Troponin I High Sens 36 08/05/24 20:25: Troponin I High Sens 52 08/06/24 05:15: WBC 12.0 H, RBC 5.36, Hgb 15.1, Hct 46.9, MCV 87.5, MCH 28.2, MCHC 32.2, RDW Std Deviation 45.2 H, RDW Coeff of [place] 14.2, Plt Count 179, MPV 11.1, Immature Gran % (Auto) 0.500, Neut % (Auto) 58.4, Lymph % (Auto) 26.5, C[place] % (Auto) 10.0, Eos % (Auto) 3.8, Baso % (Auto) 0.8, Absolute Neuts (auto) 7.0, Absolute Lymphs (auto) 3.19, Nucleated RBC % 0, PT 15.3 H, INR 1.2, Sodium 139, Potassium 4.5, Chloride 107, Carbon Dioxide 26.0, Anion Gap 6, BUN 15, Creatinine 1.20, Estim Creat Clear Calc 69.36, Est GFR (MDRD) Af Amer 78, Est GFR (MDRD) Non-Af 65, BUN/Creatinine Ratio 12.5, Glucose 103, Calcium 9.1, Magnesium 2.2, Triglycerides 159, Cholesterol 224 H, LDL Cholesterol 157 H, VLDL Cholesterol 32, HDL Cholesterol 35 L, TSH 1.750 Radiography Diagnostic Testing: Radiology Impression Echocardiogram 08/05/24 18:38 Interpretation Summary The estimated ejection fraction is 60 %. No evidence for diastolic dysfunction. Ordering Physician: Ely Simpson Referring Physician: EVANGELINA ECHAVARRIA Performed By: Elva Cason RDCS D/C Instructions Discharge Diet: No restrictions Weight Bearing Status: Weight bearing as tolerated Call your doctor if you observe: Fever of 101 or Higher, Coldness, Increased Pain, Numbness or Tingling, Change in Color, Inability to urinate, Inability to have a bowel movement, Shortness of breath, Dizziness, Fainting spells, Swelling in the ankles, Chest pain, Prolonged hiccupping, Increased palpitations (irregular heartbeat) and Calf discomfort DC O2, CPAP, BIPAP Needs Additional Home O2 Discharge instructions: No DC home with Oxygen: No When: IN 2 WEEKS Meaningful Use Info Meaningful Use Meaningful Use Diagnoses (Choose all that apply): None applicable Ischemic Stroke Statin Dosing Therapy Reference: STATIN DOSE THERAPY REFERENCE: * Patients > 75 years receive moderate or high dose statin therapy. * Patients 75 years or YOUNGER should receive HIGH intensity statin dose unless contraindicated. You will be required to document reason for non-treatment if statin daily dose does not meet guidelines. HIGH DOSE STATIN THERAPY DAILY Atorvastatin > than or = to 40 mg Rosuvastatin > than or = to 20 mg Amlodipine + Atorvastatin > than or = to 2.5/40 mg Ezetimibe + Simvastatin 10/80 mg Simvastatin 80mg Discharge Plan Admission Admit Date/Time: 08/05/24 18:29 Primary Reason for Your Visit: Atypical chest pain Attending Provider: Bert Pickens Primary Care Provider: Evangelina Echavarria Consulting Providers: Ely Simpson Instructions Patient Instructions: ED Chest Pain, Uncertain Cause Additional Instructions / Restrictions: Your workup today was overall reassuring. Please follow-up with your paperhanger assistant. I suspect given your reported heart rate of 177 that you went into an episode of atrial fibrillation which is what caused the chest pain. If you do have another episode of high heart rate you may take an additional half dose of your carvedilol (6.25 mg). If you have worsening symptoms or further/longer lasting chest pain please return to the emergency room. You have some mild renal insufficiency on your lab work today. Please push fluids at home. Follow-up with your primary care doctor. I suspect this is chronic but do not have any recent labs to compare to. Discharge Orders/Prescriptions Prescriptions: New atorvastatin 40 mg Tablet 40 mg PO QHS 30 Days Qty: 30 2RF Continued Xarelto 20 mg tablet 20 mg PO DAILY Rx Instructions: Fax to [facility] lisinopril 10 mg tablet 10 mg PO BID Qty: 180 3RF carvedilol 6.25 mg tablet 6.25 mg PO BID Qty: 180 3RF Rx Instructions: must administer with a meal/food Discontinued carvedilol 12.5 mg tablet 12.5 mg PO DAILY Referrals / Follow Up: Evangelina Echavarria DO [Primary Care Provider] - John Miranda MD [Med Staff - Active Staff] - 1-2 Weeks Disposition Disposition (needs filled in before D/C Order can be placed): Home, Self Care Charges/Coding Visit Charges Inpatient E&M: 42831 Disch Hosp >30min
--- NOTE | 2024-08-06 16:20 | CASEMGMT ---
Patient has order for discharge. RN CM in to discuss needs at discharge. Patient denies needs or help at discharge. Patient had no further questions or concerns.
[2024-08-06 16:30] VITALS: BP 132/78; PULSE 48; RESP 16; TEMP 36.7; O2SAT 99
== END 2024-08-06 16:03 | disposition home or self-care (01) ==
LOC: ED 18:42 → PCU 19:28
PROVIDERS: Admitting Provider Internal Medicine; Emergency Provider Emergency Medicine; PCP Family Medicine; Visit Provider Internal Medicine
DX: R07.89 Other chest pain (principal); J43.9 Emphysema, unspecified; I48.0 Paroxysmal atrial fibrillation; I42.8 Other cardiomyopathies; Z79.01 Long term (current) use of anticoagulants; N18.2 Chronic kidney disease, stage 2 (mild); I12.9 Hypertensive chronic kidney disease with stage 1 through stage 4 chronic kidney disease, or unspecified chronic kidney disease; Z79.899 Other long term (current) drug therapy; R06.02 Shortness of breath; K21.9 Gastro-esophageal reflux disease without esophagitis; Z82.49 Family history of ischemic heart disease and other diseases of the circulatory system; F17.210 Nicotine dependence, cigarettes, uncomplicated; R00.1 Bradycardia, unspecified; I45.2 Bifascicular block; R94.31 Abnormal electrocardiogram [ECG] [EKG]; I49.1 Atrial premature depolarization
CPT/HCPCS: 36415; 71046; 78452; 80048; 80061; 83735; 84443; 84484; 85025; 85610; 93005; 93017; 93306; 99221; 99285; A9500; A4216; G0378

== ENCOUNTER → 2025-02-17 | Outpatient (CLI) | payer MEDICARE, OTHER, SELFPAY ==
[2025-02-17 17:42] LABS: ALB/GLOB Ratio 1.3 RATIO (0.9-2.4); AST(SGOT) 19 U/L (<=37); Alanine Aminotransfer ALT/SGPT 14 U/L (<=46); Albumin, Serum 4.3 g/dL (3.4-4.8); Alkaline Phosphatase 88 U/L (40-129); Anion Gap 10 (5-15); BUN 14 mg/dL (4-19); Calcium,Total 9.3 mg/dL (7.6-11.0); Carbon Dioxide 24.4 mmol/L (21.0-32.0); Chloride 103 mmol/L (98-108); Cholesterol 182 mg/dL (<=200); Creatinine, Serum 1.07 mg/dL (0.70-1.20); EST Glomerular Filtration Rate 77 (>60); Globulin 3.3 g/dL (2.2-4.2); Glucose 88 mg/dL (70-99); High Density Lipoprotein 30 mg/dL; Low Density Lipoprotein Calc. 119 mg/dL; Potassium 4.9 mmol/L (3.3-5.1); Protein, Total 7.7 g/dL (5.9-8.4); Sodium Level 138 mmol/L (133-145); Triglycerides 166 mg/dL; Very Low Density Lipoprotein 33 mg/dL (5-40); cholesterol:hdl ratio screen 6.13
== END | disposition home or self-care (01) ==
LOC: BIMLAB 14:35
PROVIDERS: PCP Family Medicine; Visit Provider Family Medicine
DX: E78.5 Hyperlipidemia, unspecified (principal)
CPT/HCPCS: 36415; 80053; 80061